=== PATIENT | female | born 1945 | race Caucasian/White ===

== ENCOUNTER 2024-01-13 12:46 | Emergency (ER) | payer MEDICARE, SELFPAY ==
--- NOTE | ~2024-01-13 | CT_ITS ---
EXAMINATION: CT ANGIOGRAM OF THE CHEST WITH AND WITHOUT CONTRAST (CT PULMONARY ANGIOGRAM FOR PE) CLINICAL INFORMATION: Shortness of breath. Pulmonary embolus. COMPARISON: Chest radiograph from 01/13/2024. TECHNIQUE: Prior to contrast administration, noncontrast localization images were obtained. Subsequently, multidetector volumetric imaging was performed from the thoracic inlet to below the diaphragms following the administration of 65 mL Omnipaque 350 intravenous contrast. No contrast reaction reported. Sagittal, coronal, and MIP oblique sagittal reformatted images were obtained on the CT workstation, uploaded to PACS, and reviewed. This CT examination was performed using dose optimization techniques as appropriate, variously including the following: *Automated exposure control. *Adjustment of mA and/or kV according to patient size (this includes techniques or standardized protocols for targeted exams where dose is matched to indication/reason for exam; i.e. extremities or head). *Use of iterative reconstruction technique. DLP: 431 mGy-cm FINDINGS: QUALITY OF STUDY/CONTRAST BOLUS: Satisfactory contrast bolus. Moderate respiratory degradation (especially in the lung bases). PULMONARY ARTERIES: No central pulmonary emboli. Evaluation of the segmental pulmonary arteries in the lung bases is limited by respiratory motion. Within this limitation, there is no overt segmental pulmonary emboli. THORACIC AORTA: The thoracic aorta is of normal contour and caliber with mild to moderate calcific atherosclerotic disease. No evidence of thoracic aortic aneurysm or dissection. LUNG: Mild bilateral dependent atelectasis. No focal consolidation, nodules, or masses. PLEURA: No pleural effusion or pneumothorax. MEDIASTINUM: Normal heart size. No pericardial effusion. No hilar or mediastinal lymphadenopathy. No evidence of septal bowing or right heart strain. Coronary artery calcifications: Present - mild to moderate. CHEST WALL/AXILLA: No axillary or internal mammary lymphadenopathy. OSSEOUS STRUCTURES: No acute or suspicious osseous abnormality. Advanced degenerative arthropathy of the shoulder joints. Moderate multilevel degenerative spondyloarthropathy of the thoracic spine. UPPER ABDOMEN: Small hiatal hernia. No additional demonstrated significant abnormalities of the visualized upper abdomen. No reflux of contrast into the hepatic veins to suggest elevated right heart pressures. CT/CT angio chest PE protocol IMPRESSION: 1. No central pulmonary emboli. Evaluation of the segmental pulmonary arteries in the lung bases is limited by respiratory motion. 2. No demonstrated acute pulmonary abnormalities. VTE: negative. Electronically signed by: Hubert Nails DO 01/13/2024 05:47 PM EDT
--- NOTE | ~2024-01-13 | XR_ITS ---
EXAMINATION: XR CHEST CLINICAL INFORMATION: Shortness of breath. COMPARISON: None available. TECHNIQUE: 2 views of the chest were obtained. FINDINGS: Low lung volumes. No focal consolidation. No pleural effusion. Cardiac silhouette appears prominent but this may be accentuated by hypoinflation. Anterior wedging of multiple mid to lower thoracic spine vertebral bodies. XR/XR chest 2V IMPRESSION: No acute abnormality. Electronically signed by: Nikita Joseph MD 01/13/2024 04:14 PM EDT
--- NOTE | 2024-01-13 13:02 | ECG_ITS ---
Test Reason : sob Blood Pressure : / mmHG Vent. Rate : 099 BPM Atrial Rate : 099 BPM P-R Int : 158 ms QRS Dur : 086 ms QT Int : 346 ms P-R-T Axes : 040 012 007 degrees QTc Int : 444 ms Normal sinus rhythm Inferior infarct , age undetermined Cannot rule out Anterior infarct , age undetermined Abnormal ECG No previous ECGs available Referred By: Lynn Mann Electronically Signed By:ARTEM MCCURDY MD
--- NOTE | 2024-01-13 13:02 | ED_ITS ---
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 Patient states that over the last 2 weeks she has had worsening shortness of breath and cough. Patient states that she was started on doxycycline but after 1 dose, she vomited, and stopped taking it entirely. Patient denies any dizziness, lightheadedness, abdominal pain, nausea, vomiting, fever, chills, blurry vision, double vision, loss of vision, chest pain, back pain, night sweats, pain with urination, increased urinary frequency, increased urinary urgency, blood in her urine or stool, syncope or a near syncopal episode, recent trauma or falls, bowel incontinence, bladder incontinence, or any other complaints at this time. Onset (ago): week(s) (2) Relieving factors: none Associated symptoms: cough and shortness of breath Treatments prior to arrival: other (Inhaler) Related Data Previous Rx's ?Medication ?Instructions ?Recorded azithromycin 500 mg tablet See Rx Instructions PO .COMPLEX #3 01/13/24 tabs Allergies Allergy/AdvReac Type Severity Reaction Status Date / Time doxycycline Allergy Unknown Verified 01/13/24 13:21 latex Allergy Unknown Verified 01/13/24 13:21 rosuvastatin Allergy Unknown Verified 01/13/24 13:21 Sulfa (Sulfonamide Allergy Unknown Verified 01/13/24 13:20 Antibiotics) Review of Systems 2 Constitutional: Constitutional: Denies chills, Denies fever(s) and Denies night sweats Eyes: Eyes: Reports no additional eye complaints, Denies blurry vision, Denies change in vision, Denies diplopia, Denies eye discharge, Denies loss of vision and Denies eye pain ENT: Denies dizziness Cardiovascular: Cardiovascular: Reports no additional cardiovascular complaints, Denies chest pain, Denies lightheadedness, Denies Loss of Consciousness, Denies palpitations and Reports dyspnea Respiratory: Respiratory: Reports no additional respiratory complaints, Reports cough, Reports dyspnea and Reports wheezing Gastrointestinal: Gastrointestinal: Reports no additional gastrointestinal complaints, Denies abdominal pain, Denies melena, Denies hematochezia, Denies change in bowel habits and Denies change in stool character Genitourinary: Genitourinary: Denies hematuria, Denies urinary frequency, Denies dysuria, Denies urinary incontinence, Denies urinary hesitancy and Denies urinary urgency Musculoskeletal: Musculoskeletal: Reports no additional musculoskeletal complaints, Denies numbness and Denies tingling Neurologic: Denies dizziness, Denies loss of vision, Denies numbness and Denies tingling Psychiatric: Psychiatric: Reports no additional psychiatric complaints Endocrine: Endocrine: Reports no additional endocrine complaints and Denies palpitations Hematologic/Lymphatic: Hematologic/Lymphatic: Reports no additional hematologic/lymphatic complaints Allergic/Immunologic: Allergic/Immunologic: Reports no additional allergic/immunologic complaints and Reports wheezing PMFSH Past Medical History Attestation statement: The following information was validated with the patient. Source: old records reviewed and nursing notes reviewed Social History Social History Alcohol intake: never Smoked in Last 30 Days: No Use of substances other than those prescribed or required for medical reasons: No Advance Directives: No Advance Directives Information Provided: No Physical Exam ED Vital Signs: Vital Signs - 24 hr 01/13/24 14:09 01/13/24 16:31 01/13/24 19:02 Temperature 98.1 F 98.1 F Pulse Rate 68 93 93 Respiratory Rate 22 H 20 18 Blood Pressure 107/48 L 107/48 L Pulse Oximetry 94 98 Oxygen Delivery Method Room Air Room Air BMI result Body Mass Index 44.8 Const General: cooperative, no acute distress, alert and awake Nutritional Appearance: well nourished Orientation/consciousness: patient oriented x3 Limitations: no limitations [facility] Head: Yes normal to inspection and Yes atraumatic Ears: hearing grossly normal bilaterally and external ears normal General nose exam: Normal external nose present, no nasal discharge noted and no epistaxis Face and sinus: Yes normal facial exam, No abrasion and No laceration Mouth: Normal oral and palatal mucosa present, no drooling and no muffled voice Eyes General: appearance normal, both eyes and all related structures Periorbital: periorbital findings normal Eyelids: Yes eyelids normal Conjunctivae: conjunctivae normal Pupils: Equal, round and reactive pupils present EOM: EOMs intact bilaterally Neck Neck: Yes normal visual inspection, Yes full ROM and Yes no lymphadenopathy Chest Chest palpation & inspection: normal inspection of the chest Resp Effort & Inspection: normal respiratory effort, able to speak in complete sentences, Actively coughing Quality: wet and symmetric chest movement Auscultation: no crackles, no rales, no rhonchi and wheezes lower bilaterally GI Inspection: Yes normal to inspection Neuro General: patient oriented x3 and moves all extremities Cranial nerves: Yes Equal, round and reactive pupils present Cognition (Neuro): normal cognition Extrem General: Yes normal to inspection, Yes full ROM and Yes capillary refill normal Psych Appearance: grossly normal Mental Status: mental status grossly normal Affect: normal affect Attitude: cooperative Thought process: Normal thought process present Thought content: Normal thought content present Insight: Good insight present (Psych) Medications Administered Discontinued Medications Generic Name Dose Route Start Last Admin Trade Name Freq PRN Reason Stop Dose Admin Albuterol Sulfate 5 mg/ 0 mg 01/13/24 14:04 01/13/24 14:06 Albuterol/Ipratropium 3 ml INHALE 01/13/24 14:05 1 each ONCE ONE Administration Iohexol 100 ml 01/13/24 15:59 01/13/24 15:59 Iohexol 350 Mg/Ml 100 Ml Infus..Btl IV 01/13/24 16:00 65 ml ONCE ONE Administration Methylprednisolone Sodium Succinate 60 mg 01/13/24 14:06 01/13/24 14:07 Methylprednisolone Sod Succ 125 Mg/2 Ml Vial IVPUSH 01/13/24 14:07 60 mg ONCE ONE Administration Medical Decision Making Medical Decision Making [facility] Narrative: Patient is a 78 year old assigned female at with a history of HTN, bipolar disorder, CKD stage 3, anxiety, hypothyroidism, 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 Patient's physical exam was as noted in the physical exam portion of this note. Patient's blood work was unremarkable. Patient's urine showed no acute process. Patient's EKG was unremarkable. Patient's chest x-ray and chest CT showed no acute process. I explained my physical exam findings as well as all test results to the patient. I answered all questions asked by the patient. Patient received a breathing treatment and IV solu-medrol which she stated helped her symptoms significantly. I stressed the importance of the patient taking her medication as directed (either prescribed or as the over the counter packaging recommends). I stressed the importance of the patient following up with her primary care provider. I stressed the importance of the patient returning to the emergency department immediately if her symptoms were to worsen or if she were to develop any dizziness, shortness of breath, difficulty breathing, chest pain, blurry vision, loss of vision, nausea, vomiting, abdominal pain, fever, chills, back pain, or any other complaints. Patient verbalized agreement and understanding with this treatment plan and discharge. Differential Diagnosis Differential Diagnoses: The differential diagnosis associated with the presentation includes COPD exacerbation Asthma exacerbation Cough PNA Admission/Observation Consideration of admission/observation: Escalation of care including admission/observation considered Patient would have been admitted to the hospital had her work up had any findings where hospital admission was appropriate and her clinical presentation warranted hospital admission. Lab Data [facility] Lab Attestation statement: I reviewed the patient's lab results. My interpretation of these results are in the [facility] Rationale portion of this note. 01/13/24 13:43 01/13/24 13:43 Labs: Lab Results 01/13/24 01/13/24 01/13/24 Range/Units 13:43 13:44 13:49 WBC 9.3 (4.8-10.8) X10*3/uL RBC 3.93 L (4.20-5.50) X10*6/uL Hgb 11.1 L (12.0-16.0) g/dl Hct 34.0 L (37.0-47.0) % MCV 86.5 (80.0-98.0) fL MCH 28.2 (27.0-33.0) pg MCHC 32.6 (31.0-35.0) g/dl RDW 14.2 (11.0-16.0) % Plt Count 240 (160-400) X10*3/uL MPV 9.7 (9.4-12.3) fL Immature Gran % (Auto) 0.4 (0.0-0.4) % Neut % (Auto) 58.2 (45-73) % Lymph % (Auto) 20.9 (20-40) % [place] % (Auto) 10.9 (2-11) % Eos % (Auto) 8.5 H (0-4) % Baso % (Auto) 1.1 (0-2) % Lymph # (Auto) 1.9 (1.2-4.9) X10*3/uL [place] # (Auto) 1.0 (0.1-1.2) X10*3/uL Eos # (Auto) 0.8 H (0.0-0.4) X10*3/uL Baso # (Auto) 0.1 (0.0-0.2) X10*3/uL Abs Immat Gran (auto) 0.04 H (0.00-0.03) X10*3/uL Absolute Neuts (auto) 5.4 (2.0-8.3) x10*3/uL Absolute Nucleated RBC 0.000 (0.0-0.012) X10*3/uL Nucleated RBC % (auto) 0.0 (0.0-0.2) /100WBC PT 33.3 H (10.9-12.4) SEC INR 2.9 H (0.9-1.1) APTT 41.0 H (26.0-36.8) SEC VBG pH 7.46 H (7.32-7.43) VBG pCO2 43 mmHg VBG pO2 57 mmHg VBG HCO3 31 H (22-26) mmol/L VBG O2 Saturation 87.0 % VBG Base Excess 6.9 mmol/L Sodium 138 (135-145) mmol/L Potassium 4.4 (3.3-5.1) mmol/L Chloride 103 (96-108) mmol/L Carbon Dioxide 28 (22-29) mmol/L Anion Gap 11 L (12-20) BUN 12 (9-16) mg/dL Creatinine 0.88 (0.5-1.4) mg/dL Estim Creat Clear Calc 67.7 Estimated GFR > 60 Random Glucose 103 (60-115) mg/dL Calcium 9.2 (8.4-10.2) mg/dL Magnesium 2.0 (1.6-2.6) mg/dL Total Bilirubin 0.6 (0.0-1.0) mg/dL AST 18 (5-31) U/L ALT 13 (0-31) U/L Alkaline Phosphatase 74 (39-117) U/L Troponin I High Sens 11.0 (<3.5-17.0) ng/L Total Protein 6.2 L (6.5-8.0) g/dL Albumin 3.5 (3.5-5.0) g/dL Urine Color Urine Appearance Urine pH (5.0-9.0) Ur Specific [place] (1.005-1.025) Urine Protein (Neg-Trace) mg/dL Urine Glucose (UA) (Negative) mg/dL Urine Ketones (Negative) mg/dL Urine Blood (Negative) Urine Nitrite (Negative) Ur Leukocyte Esterase (Negative) Influenza Type A (PCR) NEGATIVE (Negative) Influenza Type B (PCR) NEGATIVE (Negative) RSV RNA Qual (PCR) NEGATIVE (Negative) SARS-CoV-2 RNA (RT-PCR) NEGATIVE (Negative) 01/13/24 01/13/24 Range/Units 16:17 16:26 WBC (4.8-10.8) X10*3/uL RBC (4.20-5.50) X10*6/uL Hgb (12.0-16.0) g/dl Hct (37.0-47.0) % MCV (80.0-98.0) fL MCH (27.0-33.0) pg MCHC (31.0-35.0) g/dl RDW (11.0-16.0) % Plt Count (160-400) X10*3/uL MPV (9.4-12.3) fL Immature Gran % (Auto) (0.0-0.4) % Neut % (Auto) (45-73) % Lymph % (Auto) (20-40) % [place] % (Auto) (2-11) % Eos % (Auto) (0-4) % Baso % (Auto) (0-2) % Lymph # (Auto) (1.2-4.9) X10*3/uL [place] # (Auto) (0.1-1.2) X10*3/uL Eos # (Auto) (0.0-0.4) X10*3/uL Baso # (Auto) (0.0-0.2) X10*3/uL Abs Immat Gran (auto) (0.00-0.03) X10*3/uL Absolute Neuts (auto) (2.0-8.3) x10*3/uL Absolute Nucleated RBC (0.0-0.012) X10*3/uL Nucleated RBC % (auto) (0.0-0.2) /100WBC PT (10.9-12.4) SEC INR (0.9-1.1) APTT (26.0-36.8) SEC VBG pH (7.32-7.43) VBG pCO2 mmHg VBG pO2 mmHg VBG HCO3 (22-26) mmol/L VBG O2 Saturation % VBG Base Excess mmol/L Sodium (135-145) mmol/L Potassium (3.3-5.1) mmol/L Chloride (96-108) mmol/L Carbon Dioxide (22-29) mmol/L Anion Gap (12-20) BUN (9-16) mg/dL Creatinine (0.5-1.4) mg/dL Estim Creat Clear Calc Estimated GFR Random Glucose (60-115) mg/dL Calcium (8.4-10.2) mg/dL Magnesium (1.6-2.6) mg/dL Total Bilirubin (0.0-1.0) mg/dL AST (5-31) U/L ALT (0-31) U/L Alkaline Phosphatase (39-117) U/L Troponin I High Sens 11.6 (<3.5-17.0) ng/L Total Protein (6.5-8.0) g/dL Albumin (3.5-5.0) g/dL Urine Color Yellow Urine Appearance Clear Urine pH 7.5 (5.0-9.0) Ur Specific [place] 1.020 (1.005-1.025) Urine Protein Negative (Neg-Trace) mg/dL Urine Glucose (UA) Negative (Negative) mg/dL Urine Ketones Negative (Negative) mg/dL Urine Blood Negative (Negative) Urine Nitrite Negative (Negative) Ur Leukocyte Esterase Negative (Negative) Influenza Type A (PCR) (Negative) Influenza Type B (PCR) (Negative) RSV RNA Qual (PCR) (Negative) SARS-CoV-2 RNA (RT-PCR) (Negative) Independent Interpretation I performed an independent interpretation of an: EKG, Plain X-Ray and CT Scan Interpretation: My interpretation is in agreement with the radiologist's impression of these imaging studies. L EXAMINATION: XR CHEST CLINICAL INFORMATION: Shortness of breath. COMPARISON: None available. TECHNIQUE: 2 views of the chest were obtained. FINDINGS: Low lung volumes. No focal consolidation. No pleural effusion. Cardiac silhouette appears prominent but this may be accentuated by hypoinflation. Anterior wedging of multiple mid to lower thoracic spine vertebral bodies. XR/XR chest 2V IMPRESSION: No acute abnormality. Electronically signed by: Nikita Joseph MD 01/13/2024 04:14 PM EDT RP Dictated By: Argenis Joseph MD Signed By: Electronically signed by Argenis Joseph MD 01/13/24 1614 EXAMINATION: CT ANGIOGRAM OF THE CHEST WITH AND WITHOUT CONTRAST (CT PULMONARY ANGIOGRAM FOR PE) CLINICAL INFORMATION: Shortness of breath. Pulmonary embolus. COMPARISON: Chest radiograph from 01/13/2024. TECHNIQUE: Prior to contrast administration, noncontrast localization images were obtained. Subsequently, multidetector volumetric imaging was performed from the thoracic inlet to below the diaphragms following the administration of 65 mL Omnipaque 350 intravenous contrast. No contrast reaction reported. Sagittal, coronal, and MIP oblique sagittal reformatted images were obtained on the CT workstation, uploaded to PACS, and reviewed. This CT examination was performed using dose optimization techniques as appropriate, variously including the following: *Automated exposure control. *Adjustment of mA and/or kV according to patient size (this includes techniques or standardized protocols for targeted exams where dose is matched to indication/reason for exam; i.e. extremities or head). *Use of iterative reconstruction technique. DLP: 431 mGy-cm FINDINGS: QUALITY OF STUDY/CONTRAST BOLUS: Satisfactory contrast bolus. Moderate respiratory degradation (especially in the lung bases). PULMONARY ARTERIES: No central pulmonary emboli. Evaluation of the segmental pulmonary arteries in the lung bases is limited by respiratory motion. Within this limitation, there is no overt segmental pulmonary emboli. THORACIC AORTA: The thoracic aorta is of normal contour and caliber with mild to moderate calcific atherosclerotic disease. No evidence of thoracic aortic aneurysm or dissection. LUNG: Mild bilateral dependent atelectasis. No focal consolidation, nodules, or masses. PLEURA: No pleural effusion or pneumothorax. MEDIASTINUM: Normal heart size. No pericardial effusion. No hilar or mediastinal lymphadenopathy. No evidence of septal bowing or right heart strain. Coronary artery calcifications: Present - mild to moderate. CHEST WALL/AXILLA: No axillary or internal mammary lymphadenopathy. OSSEOUS STRUCTURES: No acute or suspicious osseous abnormality. Advanced degenerative arthropathy of the shoulder joints. Moderate multilevel degenerative spondyloarthropathy of the thoracic spine. UPPER ABDOMEN: Small hiatal hernia. No additional demonstrated significant abnormalities of the visualized upper abdomen. No reflux of contrast into the hepatic veins to suggest elevated right heart pressures. CT/CT angio chest PE protocol IMPRESSION: 1. No central pulmonary emboli. Evaluation of the segmental pulmonary arteries in the lung bases is limited by respiratory motion. 2. No demonstrated acute pulmonary abnormalities. VTE: negative. Electronically signed by: Hubert Nails DO 01/13/2024 05:47 PM EDT Dictated By: Chaim Nails DO Signed By: Electronically signed by Chaim Nails DO 01/13/24 1747 Vent. Rate: 099 BPM Atrial Rate: 099 BPM P-R Int: 158 ms QRS Dur: 086 ms QT Int: 346 ms P-R-T Axes: 040 012 007 degrees QTc Int: 444 ms Normal sinus rhythm Inferior infarct, age undetermined Abnormal ECG No previous ECGs available Referred By: Lynn Mann Electronically Signed By:MAGNO MCCURDY MD Dictated By: Magno Mccurdy MD Signed By: Electronically signed by Magno Mccurdy MD 01/13/24 3831 Radiology Impression Discussion of test interpretation with radiology: I have reviewed the radiologist's reading. Independent Historian Clinical information obtained from an independent historian. History obtained from or confirmed by: EMS (EMS provided additional history and confirmed the history provided by the patient.) Prescription Management I considered prescription management with: Antibiotic (patient prescribed an antibiotic) Critical Care Time Critical Care Time Critical Care Time: Yes Total Critical Care Time: 41 Attestation: I spent 41 minutes of Critical Care Time with this patient. This does not include time spent on separately reported billable procedures. Discharge Plan Discharge Clinical Impression: Acute exacerbation of chronic obstructive airways disease Patient Disposition: Home, Self-Care Instructions: COPD (Chronic Obstructive Pulmonary Disease) (DC) Additional Instructions: Please finish your course of doxycycline as well as the medication you have been prescribed today. Follow up with your primary care provider. Return to the emergency department immediately if your symptoms worsen or if you develop any dizziness, shortness of breath, difficulty breathing, chest pain, blurry vision, loss of vision, nausea, vomiting, abdominal pain, fever, chills, back pain, or any other complaints. Prescriptions: New azithromycin 500 mg tablet See Rx Instructions .ROUTE .COMPLEX Qty: 3 0RF Rx Instructions: For 250 mg dose pack: take 500 mg today (day 1), then 250 mg for 4 days (days 2-5) Referrals: [facility] [place] [facility] [place] Group] (Call to establish and follow up with a primary care provider. If you already have a primary care provider, please follow up with them.) [facility] [place] [facility] [Provider Group] (Call to establish and follow up with a primary care provider. If you already have a primary care provider, please follow up with them.) [facility] [place] [facility] [Provider Group] (Call to establish and follow up with a primary care provider. If you already have a primary care provider, please follow up with them.) Interventions: ED Discharge Assessment Last Done: 01/13/24 19:02 Discharge Date/Time: 01/13/24 19:03 Print Language: Vincentian
[2024-01-13 13:09] VITALS: BP 130/80; PULSE 88; O2SAT 96; BMI 44.8
[2024-01-13 13:52] LABS: MANUAL DIFF FLAG NO
[2024-01-13 13:53] LABS: Venous Blood Gas Refer to POC result
[2024-01-13 13:53] LABS: VBG Base Excess 6.9 mmol/L; VBG HCO3 31 mmol/L (22-26); VBG pCO2 43 mmHg; VBG pH 7.46 (7.32-7.43); VBG pO2 57 mmHg
[2024-01-13 14:01] LABS: Basophils Absolute Auto 0.1 X10*3/uL (0.0-0.2); Basophils Percent Auto 1.1 % (0-2); Eosinophils Absolute Auto 0.8 X10*3/uL (0.0-0.4); Eosinophils Percent Auto 8.5 % (0-4); Hemoglobin 11.1 g/dl (12.0-16.0); Imm Gran Abs Auto 0.04 X10*3/uL (0.00-0.03); Imm Gran Pct Auto 0.4 % (0.0-0.4); Lymphocytes Absolute Auto 1.9 X10*3/uL (1.2-4.9); Lymphocytes Percent Auto 20.9 % (20-40); Mean Corpuscular HGB Conc 32.6 g/dl (31.0-35.0); Mean Corpuscular Hemoglobin 28.2 pg (27.0-33.0); Mean Corpuscular Volume 86.5 fL (80.0-98.0); Mean Platelet Volume 9.7 fL (9.4-12.3); Monocytes Percent Auto 10.9 % (2-11); Neutrophils Absolute Auto 5.4 x10*3/uL (2.0-8.3); Neutrophils Percent Auto 58.2 % (45-73); Platelet Count 240 X10*3/uL (160-400); Red Blood Count 3.93 X10*6/uL (4.20-5.50); Red Cell Distribution Width 14.2 % (11.0-16.0); White Blood Count 9.3 X10*3/uL (4.8-10.8)
[2024-01-13 14:05] LABS: INTERNATIONAL NORM RATIO 2.9 (0.9-1.1); Prothrombin Time 33.3 SEC (10.9-12.4)
[2024-01-13] MEDS: Albuterol Sulfate 5 MG, Albuterol/Iprat 2.5/0.5MG 3 ML 3 ML INHALE (14:06)
[2024-01-13 14:07] LABS: Alanine Aminotransferase 13 U/L (0-31); Albumin Level 3.5 g/dL (3.5-5.0); Alkaline Phosphatase 74 U/L (39-117); Anion Gap 11 (12-20); Aspartate Amino Transferase 18 U/L (5-31); Bilirubin Total 0.6 mg/dL (0.0-1.0); Blood Urea Nitrogen 12 mg/dL (9-16); Calcium 9.2 mg/dL (8.4-10.2); Carbon Dioxide 28 mmol/L (22-29); Chloride 103 mmol/L (96-108); Creatinine Clr Calc Pharmacy 67.7; Estimated Glomerular Filt Rate > 60; Glucose Random 103 mg/dL (60-115); Potassium 4.4 mmol/L (3.3-5.1); Sodium 138 mmol/L (135-145); Total Protein 6.2 g/dL (6.5-8.0)
[2024-01-13] MEDS: methylPREDNISolone Sod Succ 125 MG/2 ML VIAL 60 MG IVPUSH (14:07)
[2024-01-13 14:09] VITALS: PULSE 68; RESP 22; O2SAT 99
[2024-01-13 14:39] LABS: Influenza A PCR NEGATIVE (Negative); Influenza B PCR NEGATIVE (Negative); Resp Syncy Virus RNA Qual PCR NEGATIVE (Negative); SARS COV2 PCR INHOUSE NEGATIVE (Negative)
--- NOTE | 2024-01-13 15:13 | PC.NURSE ---
From home with complaint of sob x 2 weeks that is not improving. Reports sob with exertion , not feeling well for last few weeks , occasional non -productive cough, 20g in placed in right forearm
[2024-01-13] MEDS: iohexoL 350 MG/ML 100 ML INFUS..BTL IV (15:59)
[2024-01-13 16:31] VITALS: BP 107/48; PULSE 93; RESP 20; TEMP 36.7; O2SAT 94
[2024-01-13 16:36] LABS: Appearance Urine Clear; Color Urine Yellow; Glucose Urine UA Negative (Negative); Leukocyte Esterase Urine Negative (Negative); Nitrite Urine Negative (Negative); PH 7.5 (5.0-9.0); Urine Blood Negative (Negative); Urine Ketones Negative (Negative); Urine Protein Negative (Neg-Trace)
[2024-01-13 16:43] LABS: Troponin-I High Sensitivity 11.6 ng/L (<3.5-17.0)
[2024-01-13 19:02] VITALS: BP 107/48; PULSE 93; RESP 18; TEMP 36.7; O2SAT 98
== END 2024-01-13 19:03 | disposition home or self-care (01) ==
PROVIDERS: Physician Assistant Medical; Emergency Provider Emergency Medicine
DX: J44.1 Chronic obstructive pulmonary disease with (acute) exacerbation (principal); R05.9 Cough, unspecified; R06.02 Shortness of breath; Z03.818 Encounter for observation for suspected exposure to other biological agents ruled out
CPT/HCPCS: 0241U; 36415; 71046; 71275; 80053; 81003; 82803; 83735; 84484; 85025; 85610; 85730; 93005; 94640; 96374; 99284; 99285; J2919; Q9967

== ENCOUNTER → 2024-01-13 13:02 | Outpatient (BNV) | payer MEDICARE, SELFPAY | PROVIDERS: Emergency Provider Emergency Medicine; Visit Provider Internal Medicine Cardiovascular Disease | DX: R94.31 Abnormal electrocardiogram [ECG] [EKG] (principal) | CPT/HCPCS: 93010 ==

== ENCOUNTER 2024-03-19 10:22 | Emergency (ER) | payer MEDICARE, SELFPAY ==
--- NOTE | ~2024-03-19 | US_ITS ---
EXAMINATION: US TRIPLEX LOWER EXTREMITY, BILATERAL CLINICAL INFORMATION: Bilateral leg pain and edema COMPARISON: None available. TECHNIQUE: Color-flow triplex imaging with spectral analysis and compression Doppler were performed on the bilateral lower extremities. FINDINGS: Respiratory variation, normal compression and augmented flow are noted throughout the bilateral lower extremities. The visualized common femoral vein, superficial femoral vein, profunda femoral vein, popliteal vein and midcalf peroneal and posterior tibial venous segments show no evidence of deep venous thrombosis bilaterally. There is no Pickard's cyst. US/US venous duplex LE BI IMPRESSION: No evidence of deep venous thrombosis involving the bilateral lower extremities. This study was presented today to March 19, 2024 for interpretation. Stat results provided at this time as requested by referring provider. Electronically signed by: Rhiannon Harry MD 03/19/2024 01:18 PM [facility]
--- NOTE | 2024-03-19 10:38 | ED_ITS ---
HPI - General Adult General Chief complaint: Extremity Injury, Lower Stated complaint: LLE indented/ red. 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 Patient states that she is concerned she has a blood clot in the left lower leg because she is having swelling and indenting of the left lower leg. Patient states that both legs have been swelling but left more than right. Patient denies any dizziness, lightheadedness, abdominal pain, nausea, vomiting, fever, chills, blurry vision, double vision, loss of vision, chest pain, difficulty breathing, shortness of breath, back pain, night sweats, pain with urination, increased urinary frequency, increased urinary urgency, blood in her urine or stool, syncope or a near syncopal episode, recent trauma or falls, bowel incontinence, bladder incontinence, or any other complaints at this time. Relieving factors: none Exacerbating factors: none Associated symptoms: denies other symptoms Treatments prior to arrival: none Related Data Previous Rx's ?Medication ?Instructions ?Recorded azithromycin 500 mg tablet See Rx Instructions PO .COMPLEX #3 01/13/24 tabs Allergies Allergy/AdvReac Type Severity Reaction Status Date / Time doxycycline Allergy Unknown Verified 03/19/24 10:57 latex Allergy Unknown Verified 03/19/24 10:57 rosuvastatin Allergy Unknown Verified 03/19/24 10:57 Sulfa (Sulfonamide Allergy Unknown Verified 03/19/24 10:57 Antibiotics) Review of Systems 2 Constitutional: Constitutional: Reports no additional constitutional complaints, Denies chills, Denies fever(s) and Denies night sweats Eyes: Eyes: Reports no additional eye complaints, Denies blurry vision, Denies change in vision, Denies diplopia, Denies eye discharge, Denies loss of vision and Denies eye pain ENT: Denies dizziness Cardiovascular: Cardiovascular: Reports no additional cardiovascular complaints, Denies chest pain, Denies lightheadedness, Denies Loss of Consciousness and Denies dyspnea Respiratory: Respiratory: Reports no additional respiratory complaints and Denies dyspnea Gastrointestinal: Gastrointestinal: Reports no additional gastrointestinal complaints, Denies abdominal pain, Denies melena, Denies hematochezia, Denies change in bowel habits and Denies change in stool character Genitourinary: Genitourinary: Denies hematuria, Denies urinary frequency, Denies dysuria, Denies urinary incontinence, Denies urinary hesitancy and Denies urinary urgency Musculoskeletal: Musculoskeletal: Reports no additional musculoskeletal complaints, Denies numbness and Denies tingling Comments: left lower leg swelling Neurologic: Denies dizziness, Denies loss of vision, Denies numbness and Denies tingling Psychiatric: Psychiatric: Reports no additional psychiatric complaints Endocrine: Endocrine: Reports no additional endocrine complaints Hematologic/Lymphatic: Hematologic/Lymphatic: Reports no additional hematologic/lymphatic complaints Allergic/Immunologic: Allergic/Immunologic: Reports no additional allergic/immunologic complaints PMFSH Past Medical History Attestation statement: The following information was validated with the patient. Source: old records reviewed and nursing notes reviewed Social History Social History Alcohol intake: never Advance Directives: No Advance Directives Information Provided: Yes Physical Exam ED Vital Signs: Vital Signs - 24 hr 03/19/24 10:54 03/19/24 14:17 Temperature 98.5 F Pulse Rate 57 53 Respiratory Rate 18 13 Blood Pressure 141/31 H 156/44 H Pulse Oximetry 99 96 Oxygen Delivery Method Room Air Room Air BMI result Body Mass Index 41.9 Const General: cooperative, no acute distress, alert and awake Nutritional Appearance: well nourished Orientation/consciousness: patient oriented x3 Limitations: no limitations [facility] Head: Yes normal to inspection and Yes atraumatic Ears: hearing grossly normal bilaterally and external ears normal General nose exam: Normal external nose present, no nasal discharge noted and no epistaxis Face and sinus: Yes normal facial exam, No abrasion and No laceration Mouth: Normal oral and palatal mucosa present, no drooling and no muffled voice Eyes General: appearance normal, both eyes and all related structures Periorbital: periorbital findings normal Eyelids: Yes eyelids normal Conjunctivae: conjunctivae normal Pupils: Equal, round and reactive pupils present EOM: EOMs intact bilaterally Neck Neck: Yes normal visual inspection, Yes full ROM and Yes no lymphadenopathy Chest Chest palpation & inspection: normal inspection of the chest Resp Effort & Inspection: normal respiratory effort and able to speak in complete sentences GI Inspection: Yes normal to inspection Neuro General: patient oriented x3 and moves all extremities Cranial nerves: Yes Equal, round and reactive pupils present Cognition (Neuro): normal cognition Extrem Other: 2+ bilateral lower leg edema bilateral venous stasis dermatitis General: Yes full ROM and Yes capillary refill normal Psych Appearance: grossly normal Mental Status: mental status grossly normal Affect: normal affect Attitude: cooperative Thought process: Normal thought process present Thought content: Normal thought content present Insight: Good insight present (Psych) Medical Decision Making Medical Decision Making MDM Narrative: Patient is a 78 year old assigned female at with a history of HTN, bipolar disorder, CKD stage 3, anxiety, hypothyroidism, 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 Patient's physical exam was as noted. Patient's blood work was unremarkable. Patient's bilateral lower extremity US showed no acute process / no DVT. I explained my physical exam findings as well as all test results to the patient. I answered all questions asked by the patient. I stressed the importance of the patient taking her medication as directed (either prescribed or as the over the counter packaging recommends). I stressed the importance of the patient following up with her primary care provider. I stressed the importance of the patient returning to the emergency department immediately if her symptoms were to worsen or if she were to develop any dizziness, shortness of breath, difficulty breathing, chest pain, blurry vision, loss of vision, nausea, vomiting, abdominal pain, fever, chills, back pain, or any other complaints. Patient verbalized agreement and understanding with this treatment plan and discharge. Differential Diagnosis Differential Diagnoses: The differential diagnosis associated with the presentation includes Bilateral lower leg swelling Left lower leg swelling DVT Admission/Observation Consideration of admission/observation: Escalation of care including admission/observation considered Patient would have been admitted to the hospital had her work up had any findings where hospital admission was appropriate and her clinical presentation warranted hospital admission. Lab Data [facility] Lab Attestation statement: I reviewed the patient's lab results. My interpretation of these results are in the [facility] Rationale portion of this note. 03/19/24 11:22 03/19/24 11:22 Labs: Lab Results 03/19/24 Range/Units 11:22 WBC 6.6 (4.8-10.8) X10*3/uL RBC 3.96 L (4.20-5.50) X10*6/uL Hgb 11.2 L (12.0-16.0) g/dl Hct 35.8 L (37.0-47.0) % MCV 90.4 (80.0-98.0) fL MCH 28.3 (27.0-33.0) pg MCHC 31.3 (31.0-35.0) g/dl RDW 14.2 (11.0-16.0) % Plt Count 210 (160-400) X10*3/uL MPV 9.5 (9.4-12.3) fL Immature Gran % (Auto) 0.3 (0.0-0.4) % Neut % (Auto) 57.3 (45-73) % Lymph % (Auto) 25.3 (20-40) % [place] % (Auto) 9.4 (2-11) % Eos % (Auto) 6.3 H (0-4) % Baso % (Auto) 1.4 (0-2) % Lymph # (Auto) 1.7 (1.2-4.9) X10*3/uL [place] # (Auto) 0.6 (0.1-1.2) X10*3/uL Eos # (Auto) 0.4 (0.0-0.4) X10*3/uL Baso # (Auto) 0.1 (0.0-0.2) X10*3/uL Abs Immat Gran (auto) 0.02 (0.00-0.03) X10*3/uL Absolute Neuts (auto) 3.8 (2.0-8.3) x10*3/uL Absolute Nucleated RBC 0.000 (0.0-0.012) X10*3/uL Nucleated RBC % (auto) 0.0 (0.0-0.2) /100WBC PT 35.2 H (10.9-12.4) SEC INR 3.0 H (0.9-1.1) APTT 44.1 H (26.0-36.8) SEC Sodium 141 (135-145) mmol/L Potassium 4.5 (3.3-5.1) mmol/L Chloride 106 (96-108) mmol/L Carbon Dioxide 26 (22-29) mmol/L Anion Gap 14 (12-20) BUN 14 (9-16) mg/dL Creatinine 1.00 (0.5-1.4) mg/dL Estim Creat Clear Calc 61.5 Estimated GFR 54 Random Glucose 107 (60-115) mg/dL Calcium 9.0 (8.4-10.2) mg/dL Magnesium 1.9 (1.6-2.6) mg/dL Total Bilirubin 0.5 (0.0-1.0) mg/dL AST 22 (5-31) U/L ALT 10 (0-31) U/L Alkaline Phosphatase 73 (39-117) U/L B-Natriuretic Peptide 102 H (<100) pg/mL Total Protein 6.3 L (6.5-8.0) g/dL Albumin 4.0 (3.5-5.0) g/dL Independent Interpretation I performed an independent interpretation of an: Ultrasound Interpretation: My interpretation is in agreement with the radiologist's impression of this imaging study. L EXAMINATION: US TRIPLEX LOWER EXTREMITY, BILATERAL CLINICAL INFORMATION: Bilateral leg pain and edema COMPARISON: None available. TECHNIQUE: Color-flow triplex imaging with spectral analysis and compression Doppler were performed on the bilateral lower extremities. FINDINGS: Respiratory variation, normal compression and augmented flow are noted throughout the bilateral lower extremities. The visualized common femoral vein, superficial femoral vein, profunda femoral vein, popliteal vein and midcalf peroneal and posterior tibial venous segments show no evidence of deep venous thrombosis bilaterally. There is no Pickard's cyst. US/US venous duplex LE BI IMPRESSION: No evidence of deep venous thrombosis involving the bilateral lower extremities. This study was presented today to March 19, 2024 for interpretation. Stat results provided at this time as requested by referring provider. Electronically signed by: Rhiannon Harry MD 03/19/2024 01:18 PM [facility] Dictated By: Rhiannon aHrry MD Signed By: Electronically signed by Rhiannon Harry MD 03/19/24 [id number] Radiology Impression Discussion of test interpretation with radiology: I have reviewed the radiologist's reading. Independent Historian Clinical information obtained from an independent historian. History obtained from or confirmed by: EMS (EMS provided additional history and confirmed the history provided by the patient.) Discharge Plan Discharge Clinical Impression: Swelling of extremity Patient Disposition: Home, Self-Care Instructions: Edema (ED) Additional Instructions: Your ultrasound showed no evidence of a blood clot. Your legs should be elevated whenever you are stationary. Follow up with your primary care provider. Return to the emergency department immediately if your symptoms worsen or if you develop any dizziness, shortness of breath, difficulty breathing, chest pain, blurry vision, loss of vision, nausea, vomiting, abdominal pain, fever, chills, back pain, or any other complaints. Prescriptions: No Action azithromycin 500 mg tablet See Rx Instructions .ROUTE .COMPLEX Qty: 3 0RF Rx Instructions: For 250 mg dose pack: take 500 mg today (day 1), then 250 mg for 4 days (days 2-5) Referrals: [facility] Family Medicine [Provider Group] (Call to establish and follow up with a primary care provider. If you already have a primary care provider, please follow up with them.) [facility] [Provider Group] (Call to establish and follow up with a primary care provider. If you already have a primary care provider, please follow up with them.) [facility] Primary [facility] [Provider Group] (Call to establish and follow up with a primary care provider. If you already have a primary care provider, please follow up with them.) Print Language: [place]
[2024-03-19 10:54] VITALS: BP 122/56; BP 141/31; PULSE 57; PULSE 86; RESP 18; TEMP 36.9; O2SAT 100; O2SAT 99; BMI 41.9
[2024-03-19 11:27] LABS: MANUAL DIFF FLAG NO
[2024-03-19 11:28] LABS: Basophils Absolute Auto 0.1 X10*3/uL (0.0-0.2); Basophils Percent Auto 1.4 % (0-2); Eosinophils Absolute Auto 0.4 X10*3/uL (0.0-0.4); Eosinophils Percent Auto 6.3 % (0-4); Hematocrit 35.8 % (37.0-47.0); Hemoglobin 11.2 g/dl (12.0-16.0); Imm Gran Abs Auto 0.02 X10*3/uL (0.00-0.03); Imm Gran Pct Auto 0.3 % (0.0-0.4); Lymphocytes Absolute Auto 1.7 X10*3/uL (1.2-4.9); Lymphocytes Percent Auto 25.3 % (20-40); Mean Corpuscular HGB Conc 31.3 g/dl (31.0-35.0); Mean Corpuscular Hemoglobin 28.3 pg (27.0-33.0); Mean Corpuscular Volume 90.4 fL (80.0-98.0); Mean Platelet Volume 9.5 fL (9.4-12.3); Monocytes Absolute Auto 0.6 X10*3/uL (0.1-1.2); Monocytes Percent Auto 9.4 % (2-11); Neutrophils Absolute Auto 3.8 x10*3/uL (2.0-8.3); Neutrophils Percent Auto 57.3 % (45-73); Platelet Count 210 X10*3/uL (160-400); Red Blood Count 3.96 X10*6/uL (4.20-5.50); Red Cell Distribution Width 14.2 % (11.0-16.0); White Blood Count 6.6 X10*3/uL (4.8-10.8)
[2024-03-19 11:34] LABS: Prothrombin Time 35.2 SEC (10.9-12.4)
[2024-03-19 11:36] LABS: Partial Thromboplastin Time 44.1 SEC (26.0-36.8)
[2024-03-19 11:48] LABS: B Type Natriuretic Peptide 102 pg/mL (<100)
[2024-03-19 11:52] LABS: Anion Gap 14 (12-20); Aspartate Amino Transferase 22 U/L (5-31); Bilirubin Total 0.5 mg/dL (0.0-1.0); Blood Urea Nitrogen 14 mg/dL (9-16); Carbon Dioxide 26 mmol/L (22-29); Chloride 106 mmol/L (96-108); Creatinine Clr Calc Pharmacy 61.5; Estimated Glomerular Filt Rate 54; Glucose Random 107 mg/dL (60-115); Magnesium 1.9 mg/dL (1.6-2.6); Potassium 4.5 mmol/L (3.3-5.1); Sodium 141 mmol/L (135-145); Total Protein 6.3 g/dL (6.5-8.0)
[2024-03-19 12:23] LABS: Alanine Aminotransferase 10 U/L (0-31); Alkaline Phosphatase 73 U/L (39-117)
[2024-03-19 14:17] VITALS: BP 156/44; PULSE 53; RESP 13; O2SAT 96
[2024-03-19 16:06] VITALS: BP 156/44; PULSE 53; RESP 13; TEMP 36.8; O2SAT 96
== END 2024-03-19 16:08 | disposition home or self-care (01) ==
PROVIDERS: Physician Assistant Medical; Emergency Provider Emergency Medicine
DX: R60.0 Localized edema (principal); I12.9 Hypertensive chronic kidney disease with stage 1 through stage 4 chronic kidney disease, or unspecified chronic kidney disease; N18.30 Chronic kidney disease, stage 3 unspecified; R06.02 Shortness of breath; Z79.899 Other long term (current) drug therapy
CPT/HCPCS: 36415; 80053; 83735; 83880; 85025; 85610; 85730; 93970; 99283; 99284

== ENCOUNTER 2024-10-17 11:39 | Emergency (ER) | payer OTHER, SELFPAY ==
--- NOTE | ~2024-10-17 | CT_ITS ---
EXAMINATION: CT CERVICAL SPINE WITHOUT CONTRAST CLINICAL INFORMATION: Fall, neck pain. COMPARISON: None available. TECHNIQUE: Spiral CT imaging of the cervical spine performed in axial plane without contrast. Multiplanar reformatted images were constructed from the axial data set. This CT examination was performed using dose optimization techniques as appropriate, variously including the following: *Automated exposure control *Adjustment of mA and/or kV according to patient size (this includes techniques or standardized protocols for targeted exams where dose is matched to indication/reason for exam; i.e. extremities or head) *Use of iterative reconstruction technique FINDINGS: CORONAL ALIGNMENT: -Normal. SAGITTAL ALIGNMENT: -Normal. No subluxations. C1-C2 AND CRANIOCERVICAL JUNCTION: -Intact and normally aligned. There are mild degenerative changes in the anterior atlantoaxial joint. VERTEBRAL BODIES AND FACETS: -No fracture, compression deformity, or suspicious bone lesion. -Normal facet alignment bilaterally. There are are mild bilateral degenerative facet changes. DISCS: -Mild disc degeneration present at C6-7 and C7-T1. CENTRAL CANAL: -No evidence of high-grade central canal narrowing or large disc herniation allowing for modality limitations. PREVERTEBRAL AND PARAVERTEBRAL SOFT TISSUES: -No edema, soft tissue swelling, or abnormal fluid collection. -The thyroid is small. It is otherwise normal. -Mild to moderate left greater than right carotid bulb calcifications. LUNG APICES: -Clear without pneumothorax. CT/CT cervical spine wo IV con IMPRESSION: 1. No CT evidence of acute cervical spine fracture or injury. Electronically signed by: Dima Esqueda MD 10/17/2024 01:06 PM EDT
--- NOTE | ~2024-10-17 | CT_ITS ---
EXAMINATION: CT HEAD WITHOUT IV CONTRAST HISTORY: Fall, contusion posterior scalp, headache, on Coumadin. TECHNIQUE: Unenhanced helical CT of the head was performed per standard departmental protocol. Coronal and sagittal reformats of the head were also evaluated. One or more of the following techniques was used for dose reduction: Automated exposure control, adjustment of the mA and/or kV according to patient size, use of iterative reconstruction technique. DLP: 533 mGy-cm COMPARISON: There are no prior studies available for comparison. FINDINGS: BRAIN: There is diffuse prominence of the ventricular system and cortical sulci, consistent with atrophy. Periventricular and subcortical white matter hypodensities are noted which are nonspecific, but often seen in the setting of small vessel ischemic disease. There is no mass effect or midline shift. No intra- or extra-axial fluid collections are identified. SINUSES: The visualized paranasal sinuses are clear. The mastoid air cells and middle ear cavities are well pneumatized. ORBITS: The visualized orbits are unremarkable. BONES/SOFT TISSUES: The extracranial soft tissues are unremarkable. The calvarium is intact. No suspicious lytic or sclerotic lesions. CT/CT head/brain wo IV con IMPRESSION: No acute intracranial abnormality. Electronically signed by: Chase Maria MD 10/17/2024 01:01 PM EDT
[2024-10-17 11:43] VITALS: BP 144/57; BP 156/46; PULSE 64; PULSE 72; RESP 18; TEMP 36.7; O2SAT 97; O2SAT 98; BMI 41.6
--- NOTE | 2024-10-17 12:00 | ED.FALL ---
HPI - Fall General Chief Complaint: Fall Stated Complaint: Slip and fall in shower, pos thinners Time Seen by Provider: 10/17/24 11:52 History of Present Illness ED Provider: Dr. 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 Patient states she was feeling fine and was in her usual state of health. She states she got into the shower, and turned on the water and reached for the shower bar but missed. She states that this caused her to fall backwards and strike her head on the wall. She denied loss of consciousness but she was unable to get out of her bath tub, she pulled her alarm cord and staff was unable to get her out of the bath tub therefore they called 911 and she was brought to emergency department by ambulance for evaluation for evaluation. At the time my evaluation the patient is complaining of posterior headache in the area where she struck her head, the pain is 8/10 in his a sharp pinching sensation. She denied nausea, vomiting, weakness. She is also complaining of neck pain. Related Data Previous Rx's ?Medication ?Instructions ?Recorded azithromycin 500 mg tablet See Rx Instructions PO .COMPLEX #3 01/13/24 tabs Allergies Allergy/AdvReac Type Severity Reaction Status Date / Time doxycycline Allergy Unknown Verified 10/17/24 11:47 latex Allergy Unknown Verified 10/17/24 11:47 rosuvastatin Allergy Unknown Verified 10/17/24 11:47 Sulfa (Sulfonamide Allergy Unknown Verified 10/17/24 11:47 Antibiotics) Review of Systems Review of Systems: Yes all other systems are reviewed and are negative [facility] Past Medical History [facility] Narrative: Social history: The patient lives alone in her assisted living facility. She denies tobacco, alcohol and drug use Social History Social History Alcohol intake: never Advance Directives: No Advance Directives Information Provided: Yes Do you have a plan to hurt others: No Plan Physical Exam Vital Signs: Vital Signs: Last Vital Signs Temp 98.1 F 10/17/24 11:43 Pulse 64 10/17/24 11:43 Resp 18 10/17/24 11:43 BP 156/46 H 10/17/24 11:43 Pulse Ox 97 10/17/24 11:43 O2 Del Method Room Air 10/17/24 11:43 BMI result Body Mass Index 41.6 Vital signs revealed an elevated blood pressure otherwise unremarkable Exam: General: Awake, alert in no distress Head: Normocephalic, atraumatic, tenderness palpation over the posterior scalp with no hematoma or skin breakdown EENT: PERRL, Lids normal, sclera normal, conjunctiva normal, nose normal , ears normal, throat without erythema or exudates Neck: Supple, no adenopathy Lung: breath sounds symmetric, no wheezing, rales or rhonchi Chest: symmetric movement, nontender Heart: regular rate and rhythm, normal S1, S2 no murmurs or rubs Abdomen: soft, non-tender, nondistended, normal bowel sounds Back: no vertebral tenderness, no CVAT Extremities: no deformities, moves all extremities symmetrically Neuro: Awake, alert, oriented, normal speech, cranial nerves intact, moves all extremities symmetrically Psych: Pleasant, cooperative Medications Administered Discontinued Medications Generic Name Dose Route Start Last Admin Trade Name Kitq PRN Reason Stop Dose Admin Acetaminophen 975 mg 10/17/24 12:16 10/17/24 12:23 Acetaminophen 325 Mg Tablet PO 10/17/24 12:17 975 mg ONCE STA Administration Medical Decision Making Medical Decision Making MDM Narrative: 78 year female with a past medical history of HTN, bipolar disorder, CKD stage 3, anxiety, hypothyroidism, 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 Patient states she was feeling fine and was in her usual state of health. She states she got into the shower, and turned on the water and reached for the shower bar but missed. She states that this caused her to fall backwards and strike her head on the wall. She denied loss of consciousness but she was unable to get out of her bath tub, she pulled her alarm cord and staff was unable to get her out of the bath tub therefore they called 911 and she was brought to emergency department by ambulance for evaluation for evaluation. At the time my evaluation the patient is complaining of posterior headache in the area where she struck her head, the pain is 8/10 in his a sharp pinching sensation. She denied nausea, vomiting, weakness. She is also complaining of neck pain. Vital signs revealed elevated blood pressure otherwise unremarkable. Exam revealed tenderness palpation of her her posterior scalp with no hematoma or abrasions noted. Differential diagnosis: ?Includes but is not limited to skull fracture, intracranial bleed, neck fracture, anemia, electrolyte abnormalities, coagulation abnormalities Course: 12:19 There were the following tests on the patient: CBC, CMP, PT/INR, PTT, CT head and cervical spine without IV contrast. Patient was treated with the following: Tylenol 975 mg orally for her headache. 14:08 My independent interpretation patient's laboratory evaluation is as follows: Chronic normocytic anemia with an H&H of 11.2 and 35. INR is therapeutic at 2.3. CMP was normal.CT scan of the patient's head and neck revealed no acute findings. Patient's workup is negative which is reassuring. The patient states she is feeling better after receiving the Tylenol. She has no complaints. Patient states that her daughter can pick her up and she will be discharged home in the care of her daughter. She was given printed and verbal instructions on closed head injury. Admission/Observation Consideration of admission/observation: Escalation of care including admission/observation considered (Yes) Lab Data MDM Lab Attestation statement: I reviewed the patient's lab results. 10/17/24 12:28 10/17/24 12:28 Labs: Lab Results 10/17/24 Range/Units 12:28 WBC 6.3 (4.8-10.8) X10*3/uL RBC 3.83 L (4.20-5.50) X10*6/uL Hgb 11.2 L (12.0-16.0) g/dl Hct 35.0 L (37.0-47.0) % MCV 91.4 (80.0-98.0) fL MCH 29.2 (27.0-33.0) pg MCHC 32.0 (31.0-35.0) g/dl RDW 13.4 (11.0-16.0) % Plt Count 211 (160-400) X10*3/uL MPV 9.3 L (9.4-12.3) fL Immature Gran % (Auto) 0.6 H (0.0-0.4) % Neut % (Auto) 55.1 (45-73) % Lymph % (Auto) 29.5 (20-40) % [place] % (Auto) 10.8 (2-11) % Eos % (Auto) 3.0 (0-4) % Baso % (Auto) 1.0 (0-2) % Lymph # (Auto) 1.9 (1.2-4.9) X10*3/uL [place] # (Auto) 0.7 (0.1-1.2) X10*3/uL Eos # (Auto) 0.2 (0.0-0.4) X10*3/uL Baso # (Auto) 0.1 (0.0-0.2) X10*3/uL Abs Immat Gran (auto) 0.04 H (0.00-0.03) X10*3/uL Absolute Neuts (auto) 3.5 (2.0-8.3) x10*3/uL Absolute Nucleated RBC 0.000 (0.0-0.012) X10*3/uL Nucleated RBC % (auto) 0.0 (0.0-0.2) /100WBC PT 26.6 H D (10.9-12.4) SEC INR 2.3 H (0.9-1.1) APTT 40.3 H (26.0-36.8) SEC Sodium 138 (135-145) mmol/L Potassium 5.1 (3.3-5.1) mmol/L Chloride 106 (96-108) mmol/L Carbon Dioxide 26 (22-29) mmol/L Anion Gap 11 L (12-20) BUN 18 H (9-16) mg/dL Creatinine 1.00 (0.5-1.4) mg/dL Estim Creat Clear Calc 61.2 Estimated GFR 54 Random Glucose 119 H (60-115) mg/dL Calcium 8.9 (8.4-10.2) mg/dL Total Bilirubin 0.3 (0.0-1.0) mg/dL AST 24 (5-31) U/L ALT 16 (0-31) U/L Alkaline Phosphatase 75 (39-117) U/L Total Protein 6.3 L (6.5-8.0) g/dL Albumin 4.1 (3.5-5.0) g/dL Radiology Impression Radiologist Impression: CT head/brain wo IV con IMPRESSION: No acute intracranial abnormality. Electronically signed by: Chase Maria MD 10/17/2024 01:[address] cervical spine wo IV con IMPRESSION: 1. No CT evidence of acute cervical spine fracture or injury. Electronically signed by: Dima Esqueda MD 10/17/2024 01:06 PM EDT Chronic Conditions Patient?s care impacted by: Other (DVT on warfarin therapy) Discharge Plan Discharge Clinical Impression: Fall in shower, Neck pain, On warfarin therapy Closed head injury Qualifiers: Encounter type: initial encounter Qualified Code(s): S09.90XA - Unspecified injury of head, initial encounter Headache Qualifiers: Headache chronicity pattern: acute headache Intractability: not intractable Patient Disposition: Home, Self-Care Instructions: Head Injury (ED) Additional Instructions: The CT scan of your head revealed no skull fracture no bleeding in the brain. The CT scan of your neck revealed no broken bones Your blood work was unremarkable. Your INR (marker of effect in his of Coumadin) was therapeutic at 2.3. Continue take your Coumadin as prescribed by your provider. Follow the closed head injury instructions. Take Tylenol (acetaminophen) 500 mg pills, 2 pills every 6 hours as needed for pain or fever. Apply ice to the back of your head for 10-15 minutes 4 to 6 times a day if you are having pain in this area. Follow-up with your doctor in 2 days. Please return to the emergency department if your symptoms get worse or if you develop any symptoms that are concerning to you. Prescriptions: No Action azithromycin 500 mg tablet See Rx Instructions .ROUTE .COMPLEX Qty: 3 0RF Rx Instructions: For 250 mg dose pack: take 500 mg today (day 1), then 250 mg for 4 days (days 2-5) Print Language: Serbian
[2024-10-17 12:33] LABS: MANUAL DIFF FLAG NO
[2024-10-17 12:34] LABS: Hematocrit 35.0 % (37.0-47.0); Hemoglobin 11.2 g/dl (12.0-16.0); Imm Gran Abs Auto 0.04 X10*3/uL (0.00-0.03); Imm Gran Pct Auto 0.6 % (0.0-0.4); Lymphocytes Absolute Auto 1.9 X10*3/uL (1.2-4.9); Mean Corpuscular HGB Conc 32.0 g/dl (31.0-35.0); Mean Corpuscular Hemoglobin 29.2 pg (27.0-33.0); Mean Corpuscular Volume 91.4 fL (80.0-98.0); NRBC Abs Auto 0.000 X10*3/uL (0.0-0.012); NRBC Pct Auto 0.0 /100WBC (0.0-0.2); Platelet Count 211 X10*3/uL (160-400); Red Blood Count 3.83 X10*6/uL (4.20-5.50); White Blood Count 6.3 X10*3/uL (4.8-10.8)
[2024-10-17 12:39] LABS: INTERNATIONAL NORM RATIO 2.3 (0.9-1.1); Prothrombin Time 26.6 SEC (10.9-12.4)
[2024-10-17 12:42] LABS: Partial Thromboplastin Time 40.3 SEC (26.0-36.8)
[2024-10-17 12:48] LABS: Alanine Aminotransferase 16 U/L (0-31); Albumin Level 4.1 g/dL (3.5-5.0); Alkaline Phosphatase 75 U/L (39-117); Anion Gap 11 (12-20); Aspartate Amino Transferase 24 U/L (5-31); Blood Urea Nitrogen 18 mg/dL (9-16); Calcium 8.9 mg/dL (8.4-10.2); Carbon Dioxide 26 mmol/L (22-29); Chloride 106 mmol/L (96-108); Creatinine Clr Calc Pharmacy 61.2; Estimated Glomerular Filt Rate 54; Potassium 5.1 mmol/L (3.3-5.1); Sodium 138 mmol/L (135-145); Total Protein 6.3 g/dL (6.5-8.0)
--- OUTSIDE RECORDS SUMMARY | 2024-10-17 14:06 | XMS_ITS | Data Portability ---
Author Organization [place] - [facility], [facility], [facility] Address [address] [place] [id number] Care Team Providers Care Road Traffic Controller Name Role Phone MELLISSAIDALMIS SWARTZ Primary Care Provider Assessment Encounter Date Assessment Date Assessment LastModified by Organization Details LastModified Time 12/04/2021 12/04/2021 Time On Scene with Patient: 00:28:19 75 YO F patient establishing care with . She complains of cough with occasional wheeze which is worse in supine and is using double pillow in bed. She is using PROAIR inhaler as needed for cough. She also complains of waking to her eyes glued shut with continous drainage from both eyes. PMHx includes htn, osteopenia, bipolar with depression, stroke (on Coumadin), hdl, hypothyroidism, mild aortic stenosis, MO. 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 Alert and oriented. NAD. HEENT: Normocephalic, atraumatic, EOMI, bilateral rope like yellow exudate, with injected conjunctiva, sclera injected, nares congested, left ear cerumen impaction, PND RESP:BLCTA, 02 sat wnl, no use of accessory muscles, completing sentences, CV:RRR S1,S2 ABD: Deferred MUSC:Moves all extremities Extremity:No edema or cyanosis PSYCH:Pleasant. Test: Rapid Covid negative DDX: pneumonia, asthma exacerbation, URI, bronchitis. Plan: -Lung sounds clear. Continue to use PROAIR as needed. Less likely respiratory disease. -Abx sent for rachel eye infection. Recommended washing hands frequently to prevent further spreading. -Fluticasone nasal spray prescribed to assist with nasal congestion. -Debrox prescribed for cerumen impaction. The patient is advised to make an appt with PCP in 3-5 days to discuss ongoing symptoms/ further management. The patient is also advised to go to the ED immediately for any worsening symptoms. The patient understood and agreed with this plan. The patient was given discharge instructions and all questions were answered prior to DH team departure. 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 Was seen by on 12/04 dx with bilat conjunctivitis and PND/cough. She just started her eye drops 3 days ago with eyes starting to improve. Uses inhaler and was going to use her nebulizer but could not turn it on. No fever or chills; No shortness of breath, chest pain; sleeping more upright due to cough. Just started taking Mucinex. Cough now greenish. Concerned as she gets bronchitis often. Eating and drinking well. Also complains of left proximal hand pain/palmar surface. States while hammering a knife trying to cut a squash and her hand hit the surface of the counter. Hurts when she pushes herself off the couch. Exam: pleasant, non-toxic female in no acute distress; VS WNL; bilat conjunctiva with no injection or purulent drainage; moist mucus membranes; no cervical lymphadenopathy; Breathsounds bilat clear with good areration all peterson; tight, bronchospastic nonprod cough; abd assessment negative; no edema; no pain or swelling to left palmar surface but some mild pain in the proximal palm with wrist flexion. full mobility/full CMS Vital Signs: 148/78; 60; 18; 93%; 98.1 DDx considered, but not limited to: -Asthmatic bronchitis: most likely due to history and current clinical presentation -Pneumonia: considered due to cough but not likely due to afebrile, clear BS -CHF: considered due to cough, unable to lie flat due to cough but unlikely due to clear lungs, no edema -left hand contusion: most likely due to clinical presentation -Left hand fracture Work up/Results: Ordered CXR to assess for any pneumonia; Left hand xray to ensure no fx; ordered medrol dose dayo Plan/Discussion: Asthmatic Bronchitis: -Medrol dose pack -Mucinex BID x 5-7 days -Nebulizer TID next 5-7 days -Increase fluids -CXR Left hand Injury -Most likely contusion: mechanism of injury/4 days ago -May use Moist heat/vicodin for any pain -xray left hand PCP follow up 5-7 days; continue eye drops as ordered ED precautions Proper Personal Protective Equipment (PPE), including gloves, eye protection and masks were donned and doffed appropriately and all equipment cleaned using approved technique with germicidal disposable wipes prior to and after care of this patient according to [facility] infection prevention protocols. [email or web address] Not available 12/12/2021 14:30:57 Plan of Treatment Reminders Order Date Submit Date Provider Last Modified By Organization Details Last Modified Time Details Appointments None recorded. Lab rapid SARS CoV 2 Ag, QL IA, respirato ry specimen 2021 [facility], [address] [place] [address], [id number], 17:26:39 Referral None recorded. Procedures None recorded. Surgeries None recorded. Imaging XR, hand, 3 or more view 2021 [facility] ([facility]), [address] [place] [address], [address], 2 13:52:01 XR, chest, 2 view 2021 [email or web address] 1 [facility] Corporate Office ([facility] [address] [place], [address], 2 11:11:32 Medication Orders Medrol (Dayo) 4 mg tablets in a dose pack 2021 [facility]Pharmacy #[id number], [address] [place], [address], 14:20:36 Debrox 6.5 % ear drops 2021 [facility]/Pharmacy #[id number], [address] [place], [address], 15:15:10 [email or web address] n 0.3 % eye drops 2021 [email or web address] [facility]/Pharmacy #[id number], [address] [place], [address], 13:44:51 Flonase Allergy Relief 50 mcg/actua tion nasal spray,pushpa pension 2021 022 [email or web address] 83 [facility]/Pharmacy #[id number], [address] [place], [address], 16:53:18 Patient TargetsNo targets recorded. Patient Instructions Encounter Date Encounter Id Patient Instructions Last Modified By Organization Details Last Modified Time 12/04/2021 [id number] You were seen for cough and eye discharge. Antibiotic drops were prescribed. The patient is advised to make an appt with PCP in 3-5 days to discuss ongoing symptoms/ further management. The patient is also advised to go to the ED immediately for any worsening symptoms. The patient understood and agreed with this plan. The patient was given discharge instructions and all questions were answered prior to DH team departure. [email or web address] Not available 12/04/2021 17:04:52 12/12/2021 [id number] -You were seen today for persistent cough and left hand pain -We ordered both a chest and left hand xray -Continue with the Mucinex twice a day for the net 5-7 days and use your nebulizer 3 times a day for the next 5-7 days -We called in a prescription for a steroid taper to help with your cough -Increase your fluids -May take Vicodin as needed for any pain -Call you PCP for a follow up visit in 5-7 days but seek medical attention if any increased cough, fever, shortness of breath or chest pain [email or web address] Not available 12/12/2021 14:05:56 Reason for Referral None Reported. Results Created Date Observation Date Name Description Value Unit Range Abnormal Flag Note LastModifiedBy Organization Detail LastModifiedTime 12/05/19 22 12/04/2021 rapid SARS CoV 2 Ag, QL IA, respi rator y speci men Covid-19 (ref: neg) negati ve Not Available [facility] - [facility] [address] [facility], [place], [address], 12/04/2021 15:12:53 12/05/19 22 12/04/2021 rapid SARS CoV 2 Ag, QL IA, respi rator y speci men Control Visual ized/V alid Not Available [facility] - [facility] [address] [facility], [place], [address], 12/04/2021 15:12:53 12/05/19 22 12/04/2021 rapid SARS CoV 2 Ag, QL IA, respi rator y speci men Location [facility], [address] [facility], [place] [address], [id number] Not Available [facility] - Home [address] [place], [address], 12/04/2021 15:12:53 12/16/19 22 12/15/2021 XR, chest , 1 view XRAY CHEST 1 VIEW FINDIN GS: Lungs: No focal consol idatio n. Pulmon clement vascul ature is within normal [facility] [address] [facility] [address], [place], [address], 12/15/2021 15:20:42 12/16/19 22 12/15/2021 XR, hand, 3 or more view HAND MINIMU M 3 VIEWS, LEFT FINDIN GS: No acute fractu re or disloc ation. The osseou s struct ures appear intact . Joint spaces are narrow ed. Soft tissue s are unrema rkable . CONCLU DEBI: No acute findin gs. Degene rative change s. Consid er a repeat study if sympto ms contin ue to persis t or progre ss. ELECTR ONICAL LY SIGNED BY AWILDA BROWN M.D. 022 1:43:2 2 PM EDT. XRAY CHEST 1 VIEW Result s: Lungs: No focal consol idatio n. Pulmon clement vascul ature is within normal limits . Promin ent lung markin gs. Pleura : No pneumo thorax . No pleura l effusi on. Heart and Medias tinum: The cardio medias tinal silhou ette is enlarg ed in size and contou r. Osseou s struct ures: Visual ized osseou s struct ures are stable . No radiop aque foreig n body. Conclu debi: No acute cardio pulmon clement proces s. Electr onical ly signed by AWILDA BROWN M.D. 022 1:43:2 2 PM EDT. HAND MINIMU M 3 VIEWS, LEFT Result s: No acute fractu re or disloc ation. The osseou s struct ures appear intact . Joint spaces are narrow ed. Soft tissue s are unrema rkable . Conclu debi: No acute findin gs. Degene rative change s. Consid er a repeat study if sympto ms contin ue to persis t or progre ss. Electr onical ly signed by AWILDA BROWN M.D. 022 1:43:2 2 PM EDT. [facility] [address] [facility] [address], [place], [address], 12/15/2021 15:20:21 Result Notes Documentation Provider Name and Address Organization Details Recorded Time Xr, Chest, 1 View : XRAY CHEST 1 VIEW FINDINGS: Lungs: No focal consolidation. Pulmonary vasculature is within normal Vandana Noguera NP [address] [facility], [place], [address], [place] [facility] 12/15/2021 15:20:42 Xr, Hand, 3 Or More View : HAND MINIMUM 3 VIEWS, LEFT FINDINGS: No acute fracture or dislocation. The osseous structures appear intact. Joint spaces are narrowed. Soft tissues are unremarkable. CONCLUSION: No acute findings. Degenerative changes. Consider a repeat study if symptoms continue to persist or progress. ELECTRONICALLY SIGNED BY JANA BROWN M.D. 12/15/2021 1:43:22 PM EDT. XRAY CHEST 1 VIEW Results: Lungs: No focal consolidation. Pulmonary vasculature is within normal limits. Prominent lung markings. Pleura: No pneumothorax. No pleural effusion. Heart and Mediastinum: The cardiomediastinal silhouette is enlarged in size and contour. Osseous structures: Visualized osseous structures are stable. No radiopaque foreign body. Conclusion: No acute cardiopulmonary process. Electronically signed by JANA BROWN M.D. 12/15/2021 1:43:22 PM EDT. HAND MINIMUM 3 VIEWS, LEFT Results: No acute fracture or dislocation. The osseous structures appear intact. Joint spaces are narrowed. Soft tissues are unremarkable. Conclusion: No acute findings. Degenerative changes. Consider a repeat study if symptoms continue to persist or progress. Electronically signed by JANA BROWN M.D. 12/15/2021 1:43:22 PM EDT. Vandana Noguera NP [address] [place], [address], [place] - [facility] 12/15/2021 15:20:21 Procedures Surgical History Date Name Laterality Status Provider Name and Address Organization Details Recorded Time 022 Medication Review completed Vandana Noguera NP [address] [place], [address], [place] [facility] 12/12/2021 14:31:04 total knee [place], [address], [place] [facility] 12/12/2021 13:45:56 Cholecystectomy completed Vandana Noguera NP [address], [place], [address], [place] [facility] 12/12/2021 13:46:16 Appendectomy completed Vandana Noguera NP [address], [place], [address], [place] [facility] 12/12/2021 13:46:24 Imaging Results None recorded. Procedure Notes None recorded. Medical Equipment None Reported. Allergies Allergen ID Allergen Name Allergen Category Reaction Reaction Severity Criticality Documentation Date Start Date Code Code System Note Provider Name and Address Organization Details Recorded Time Robaxin medicatio n Not available Not available Not available 12/04/2021 86582 5 RxNorm October HIREN De La Cruz [address] [place], [address], [place] [facility] 09/02/202 2 14:14:42 147536 Ultram medicatio n Not available Not available Not available 12/04/2021 47610 6 RxNorm Elke De La Cruz , [employer] [address], [place], [address], [place] [facility] 2 14:15:03 [id number] Substance with sulfonami de structure and antibacte rial mechanism of action (substanc e) medicatio n Not available Not available Not available 12/04/2021 28908 8003 SNOMED Elke De La Cruz , B[employer] CENTER MANAGER [address], [place], [address], [place] [facility] 2 14:15:10 [id number] Robitussi n medicatio n Not available Not available Not available 12/04/2021 02851 2 RxNorm Elke De La Cruz , B[employer] C[employer] MANAGER [address], [place], [address], [place] [facility] 2 14:15:19 Medications Name Sig Start Date Stop Date Status Note LastModified by Organization Details LastModified Time atorvastati n 80 mg tablet TAKE 1 TABLET BY MOUTH EVERY DAY active Not Available Not Available No t Available clonidine HCl 0.1 mg tablet TAKE 1 TABLET BY MOUTH TWICE A DAY active Not Available Not Available No t Available cetirizine 5 mg tablet TAKE 2 TABLETS BY MOUTH EVERY DAY NEEDED FOR ALLERGY SYMPTOMS active Not Available Not Available No t Available hydrocodone 5 mg-acetamin ophen 325 mg tablet TAKE 1 TABLET BY MOUTH TWICE A DAY NEEDED FOR SEVERE PAIN. active Not Available Not Available No t Available Debrox 6.5 % ear drops INSTILL 5 DROPS INTO AFFECTED EAR(S) BY OTIC ROUTE 2 TIMES PER DAY 2021 active Not Available Not Available Not Avai lable lamotrigine 25 mg tablet TAKE 1 TABLET BY MOUTH TWICE A DAY active Not Available Not Available No t Available levothyroxi ne 75 mcg tablet TAKE 1 TABLET BY MOUTH EVERY DAY active Not Available Not Available No t Available benzonatate 100 mg capsule TAKE 1 CAPSULE BY MOUTH 3 TIMES A DAY FOR 10 DAYS FOR COUGH. SWALLOW WHOLE DO NOT CRUSH OR CHEW. active Not Available Not Available No t Available doxycycline monohydrate 100 mg capsule TAKE 1 CAPSULE BY MOUTH TWICE A DAY FOR 7 DAYS 12/04 completed Not Available Not Available Not Available econazole nitrate 1 % topical cream APPLY FINGER-TI P AMOUNT TO AFFECTED REGION ONCE DAILY FOR TWO WEEKS 12/12 completed Not Available Not Available Not Available tobramycin 0.3 % eye drops INSTILL 1 DROP INTO AFFECTED EYE EVERY 4 HOURS 12/12 completed Not Available Not Available Not Available lisinopril 10 mg tablet TAKE 1 TABLET BY MOUTH EVERY DAY active Not Available Not Available No t Available warfarin 5 mg tablet TAKE 1/2-1 TABLET BY MOUTH DAILY DIRECTED BY [facility] active Not Available Not Available No t Available lisinopril 5 mg tablet TAKE 1 TABLET BY MOUTH EVERY DAY 12/04 completed Not Available Not Available Not Available methylpredn isolone 4 mg tablets in a dose pack Take 1 dose pk by oral route. active Not Available Not Available No t Available albuterol sulfate HFA 90 mcg/actuati on aerosol inhaler INHALE 2 PUFFS EVERY 6 HOURS NEEDED FOR WHEEZING OR SHORTNESS OF BREATH active Not Available Not Available No t Available fluticasone propionate 50 mcg/actuati on nasal spray,suspe nsion SPRAY EACH NOSTRIL DAILY FOR 14 DAYS NEEDED active Not Available Not Available No t Available Anti-Itch Medicated 1 %-1 % topical cream APPLY TO AFFECTED AREA TWICE DAILY FOR ITCHING 12/12 completed Not Available Not Available Not Available enoxaparin 100 mg/mL subcutaneou s syringe INJECT THE CONTENTS OF 1 SYRINGE SUBCUTANE OUSLY EVERY 12 HOURS. DISCONTIN UE WHEN INR IS BETWEEN 2 AND 3 12/12 completed Not Available Not Available Not Available escitalopra m 20 mg tablet TAKE 1 TABLET BY MOUTH EVERY DAY active Not Available Not Available No t Available ferrous sulfate 324 mg (65 mg iron) tablet,janeth yed release TAKE 1 TABLET BY MOUTH EVERY DAY active Not Available Not Available No t Available Pradaxa 150 mg capsule TAKE 1 CAPSULE BY MOUTH TWICE A DAY 12/04 completed Not Available Not Available Not Available calcium 500 mg (as carbonate)- vitamin D3 15 mcg (600 unit) tablet TAKE 1 TABLET BY MOUTH EVERY DAY active Not Available Not Available No t Available Vitals Date Recorded Body temperature Heart rate Respiratory rate Oxygen saturation Oxygen saturation in Arterial blood by Pulse oximetry Systolic And Diastolic Provider Name and Address Organization Details Last Updated DateTime 2 98.1 [degF] 60 /min 18 /min 96 % 96 % 140/66 mm[Hg] Not Available [facility] 2 14:30:42 Date Recorded Heart rate Oxygen saturation Oxygen saturation in Arterial blood by Pulse oximetry Respiratory rate Body temperature Systolic And Diastolic Provider Name and Address Organization Details Last Updated DateTime 2 60 /min 93 % 93 % 18 /min 98.1 [degF] 148/78 mm[Hg] Not Available [facility] 2 13:48:19 Social History Question Answer Notes LastModified by Organizat ion Details LastModified Time Tobacco Smoking Status Former Smoker October Jono, HIREN [address], [place], [address], [place] [facility] 12/04/2021 14:33:44 When Did You Quit Smoking? 16+yearssince lastcigaryen [email or web address] Information not available 12/04/2021 Within The Past 12 Months, Has It Happened That The Food You Bought Just Didn't Last And You Didn't Have Money To Get More. No [email or web address] Information not available 12/04/2021 Within The Past 12 Months, Have You Worried That Your Food Would Run Out Before You Got Money To Buy More. No [email or web address] Information not available 12/04/2021 Fall Risk: Do You Feel Unsteady When Standing Or Walking? Yes [email or web address] Information not available 12/04/2021 We Know That How And When People Interact With Friends And Family Can Be Very Different From Person To Person. How Often Do You Have The Opportunity To See Or Talk To People That You Care About And Feel Close To? (Ex: Talking To Friends On The Phone Or Visiting Friends Or Family Or Going To Taoist Or Club Meetings) Choose Not To Answer This Question [email or web address] Information not available 12/04/2021 Excessive Alcohol Or Drug Use No [email or web address] Information not available 12/04/2021 Does This Patient Have A PCP? Yes Information not available 12/04/2021 Has The Patient Seen Their PCP In The Past 6 Months? Yes [email or web address] Information not available 12/04/2021 Is This Patient In Hospice? No [email or web address] Information not available 12/04/2021 We Know From Many Of Our Patients That Covering All Of Their Costs Can Be Difficult At Times. This Can Cause Stress And Impact Health. In The Past Year, Have You Been Unable To Get Any Of The Following When It Was Really Needed? No [email or web address] Information not available 12/04/2021 What Is Your Housing Situation Today? I Have Housing [email or web address] Information not available 12/04/2021 Would You Like Help Connecting To Resources? None [email or web address] Information not available 12/04/2021 Do You Have A Medical Power Of Commercial Lease Administrator? No [email or web address] Information not available 12/04/2021 Do You Have An Out Of Hospital DNR? No [email or web address] Information not available 12/04/2021 At What Age Did You Start Smoking Tobacco? 17 [email or web address] Information not available 12/04/2021 How Many Years Have You Smoked Tobacco? 5 [email or web address] Information not available 12/04/2021 Sex: Unknown Functional Status Question Answer Note LastModified by Organizat ion Details LastModified Time Do you use any illicit or recreational drugs? No [email or web address] Information not available 12/04/2021 Do you or have you ever used any other forms of tobacco or nicotine? No [email or web address] Information not available 12/04/2021 What is your level of alcohol consumption? None [email or web address] Information not available 12/04/2021 Mental Status None recorded. Family History Nothing Reported Notes:pt does not know Medical History Condition Response Coronary Artery Disease Y Hypothyroidism Y COPD N Depression Y A-fib N Diabetes N CHF N Cancer N Stroke Y Dementia N Asthma Y High Cholesterol Y Hypertension Y Osteoporosis Kidney Disease Y Gynecological HistoryNo gynecological history recorded. Obstetrics History GPAL:G 0 P 0 0 0 0 Past Encounters Encounter ID Performer Location Encounter Start Date Encounter Closed Date Diagnosis/Indication Diagnosis SNOMED-CT Code Diagnosis ICD10 Code Diagnosis Note [id number] October HIREN De La Cruz [facility] - HOME [address] [facility] [place] [address] 12/04/2021 14:07:45 12/08/2021 13:12:07 Posterior rhinorrhea 03785051 R09.82 Acute conj unctivitis of bilateral eyes 3178468012 78819 H10.33 Impacted cerumen 0317697 6 H61.22 [id number] Vandana Noguera NP [facility] [address] [facility] [address] 12/12/2021 13:41:53 12/14/2021 12:48:45 Asthmatic bronchitis 370038996 J45.909 Contusion of left hand 9627147971 7170783 S60.222A Health Concerns Section Related Observation LastModified by Organization Detai ls LastModified Time None Recorded Concern Status LastModified by Organization Details LastModified Time None Recorded Advance Directives Directive N: unknown Payers Insurance Date Sequence Insurance Name Policy Number Policy Salazar Covered Member ID Salazar Member ID Guarantor Name 12/08/2021 1 [place] [facility] [employer] [facility] Vale Chávez [id number] Vale Chávez 12/12/2021 1 [place] [facility] Vale Chávez [id number] Vale Chávez 12/14/2021 1 [facility] - DOS PRIOR TO 2022 - DUAL ELIGIBLE (MEDICARE REPLACEMENT/ADV ANTAGE - HMO) Vale Chávez [id number] Vale Chávez 12/04/2021 1 *SELF PAY* Vale Chávez [id number] Vale Chávez 12/14/2021 1 [place] [facility] [employer] Vale Chávez [id number] Vale Chávez 12/08/2021 2 [facility] [employer] - DOS PRIOR TO 2022 - DUAL ELIGIBLE (MEDICARE REPLACEMENT/ADV ANTAGE - HMO) Vale Chávez [id number] Vale Chávez 12/04/2021 1 [facility] [employer] - DOS PRIOR TO 2022 - DUAL ELIGIBLE (MEDICARE REPLACEMENT/ADV ANTAGE - HMO) Vale Chávez [id number] Vale Chávez 12/04/2021 1 [place] [facility] Vale Chávez [id number] Vale Chávez 12/12/2021 1 [facility] [employer] - DOS PRIOR TO 2022 - DUAL ELIGIBLE (MEDICARE REPLACEMENT/ADV ANTAGE - HMO) Vale Chávez [id number] Vale Chávez 12/04/2021 2 [facility] [employer] [employer] - DOS PRIOR TO 2022 - DUAL ELIGIBLE (MEDICARE REPLACEMENT/ADV ANTAGE - HMO) Vale Chávez [id number] Vale Chávez Notes Date Note Type Note Provider Name and Address Organization Details Recorded Time 12/04/2021 text/html 75 YO F patient establishing care with . She complains of cough with occasional wheeze which is worse in supine and is using double pillow in bed. She is using PROAIR inhaler as needed for cough. She also complains of waking to her eyes glued shut with continous drainage from both eyes. PMHx includes htn, osteopenia, bipolar with depression, stroke (on Coumadin), hdl, hypothyroidism, mild aortic stenosis, [place]. 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 Was seen by on 12/04 dx with bilat conjunctivitis and PND/cough. She just started her eye drops 3 days ago with eyes starting to improve. Uses inhaler and was going to use her nebulizer but could not turn it on. No fever or chills; No shortness of breath, chest pain; sleeping more upright due to cough. Just started taking Mucinex. Cough now greenish. Concerned as she gets bronchitis often. Eating and drinking well. Also complains of left proximal hand pain/palmar surface. States while hammering a knife trying to cut a squash and her hand hit the surface of the counter. Hurts when she pushes herself off the couch. Vandana Noguera NP [address], [place], [address], [place] [facility] 12/12/2021 14:31:23 OBGyn Episode No OBEpisode recorded.
--- OUTSIDE RECORDS SUMMARY | 2024-10-17 14:06 | XMS_ITS ---
Author Organization [facility] Care Team Providers Care Marine Fitter Name Role Phone Elena Madera Unavailable Unavailable Vonnie Villalpando Unavailable Unavailable Lucia Hartman Unavailable Unavailable Andrea MARADIAGA, Norma Neff Unavailable Unavailable Kd, Sarah Unavailable Unavailable Maingi, Shadrack Unavailable Unavailable Allergies and adverse reactions Code CodeSystem Substance Reaction Severity StartDate Concern Status 39898 RXNORM traMADol Unknown 11/19/2020 active Sulfa Unknown 11/19/2020 active Robitussin Unknown 11/19/2020 active Robaxin Unknown 11/19/2020 active Plavix Unknown 11/19/[address] Penicillins Unknown 11/19/2020 activ e Nexium Unknown 11/19/2020 active Latex Unknown 11/19/2020 active Lasix Unknown 11/19/2020 active 2670 RXNORM Codeine Unknown 11/19/2020 active Celebrex Unknown 11/19/2020 active Care Team Name Role Address Phone Organization Dates Vonnie Villalpando PCP [address], [address], [place] (Office): : [facility] 11/19/2020 - 12/12/2020 [place], [address], [facility] (Office): : [facility] 11/19/2020 - 12/12/2020 Lucia Hartman [address] [place] [address] [address], [address], [facility] (Office): : [phone] [facility] 11/19/2020 - 12/12/2020 Norma Mendez NP [address] (Office): [facility] 11/19/2020 - 12/12/2020 Sarah Yi 819 [facility] [address] (Office): : [phone] [facility] 11/19/2020 - 12/12/2020 Reagan Livingston [address] (Office): : [facility] 11/19/2020 - 12/12/2020 Goals Section Goals Description Status Target Date Will have intake >75% of jamil ls W ill have stable weights W ill tolerate diet S kin intact W ill have no s/sx of dehydration Active 02/24/2021 Mental Status Section Date Assessment Total Score Description 12/12/2020 BIMS 15 cognitively int act CAM 0 No delirium ind icated PHQ-9 00 11/25/2020 BIMS 15 cognitively int act CAM 0 No delirium ind icated PHQ-9 00 Problems Problem # Description Date of onset Resolved Date Code CodeSystem Concern Status 1 ANXIETY DISORDER, UNSPECIFIED 11/20/[address] active 2 BIPOLAR DISORDER, UNSPECIFIED 11/20/[address] active 3 CELLULITIS OF RIGHT LOWER LIMB 11/20/[id number] active 4 HYPERLIPIDEMIA, UNSPECIFIED 11/20/[address] active 5 MAJOR DEPRESSIVE DISORDER, SINGLE EPISODE, UNSPECIFIED 11/20/[address] active 6 MUSCLE WEAKNESS (GENERALIZED) 11/20/[address] active 7 OTHER ABNORMALITIES OF GAIT AND MOBILITY 11/20/[address] active 8 PREPATELLAR BURSITIS, UNSPECIFIED KNEE 11/20/[address] active 9 UNSTEADINESS ON FEET 11/20/[address] active 10 WEAKNESS 11/20/[address] active Reason for Referral No Reasons for Referral Entered Social History Social History Observation Description Start Date End Date Code Code System Current Smoking Status Tobacco smoking consumption unknown 758087174 SNOMED CT Sex Assigned At Female 1945 05207-4 [facility] Gender Identity Vital Signs Code Code System Vitals Name Values and Units Timing Information 37734-2 [facility] Pain Level Value=0.0 12/12/2020 9279-1 [facility] Respiratory Rate Value=18.0 Units=/m in 12/12/2020 8310-5 [facility] Body Temperature Value=98.1 Units= F 12/12/2020 8867-4 [facility] Heart rate Value=75.0 Units=/min 01/2021 11863-2 [facility] O2 % BldC Oximetry Value=96.0 Units= % 12/12/2020 8462-4 [facility] Blood Pressure-Diastolic Value=79 Un its=mmHg 12/10/2020 8480-6 [facility] Blood Pressure-Systolic Cbntw=774 Un its=mmHg 12/10/2020
--- OUTSIDE RECORDS SUMMARY | 2024-10-17 14:06 | XMS_ITS | Clinical Summary ---
Author Organization [facility] ity Address [address] [place] [address] Care Team Providers Care Senior Formulation Scientist Name Role Phone Unavailable Primary Care Provider Unavailabl e Social History Tobacco Use Types Packs/Day Years Used Date Smoking Tobacco: Never Assessed Comments Unknown Sex and Gender Information Value Date Recorded Sex Assigned at Not on file Legal Sex Female 4:42 AM EST Gender Identity Not on file Sexual Orientation Not on file Plan of Treatment Health Maintenance Due Date Last Done Comments DTaP,Tdap,and Td Vaccines (1 - Tdap) 1965 Pneumococcal Vaccine: 50+ Ye ars (1 of 1 - PCV) 1996 Zoster Vaccines (1 of 2) 1996 RSV Immunization Adult Patie nts (1 - 1-dose 75+ series) 2021 COVID-19 Vaccine (1 - 2023-2 5 season) 2023 Influenza Vaccine (#1) 2024 HIB Vaccines Aged Out No longer eligi ble based on patient's age to complete this topic HPV Vaccines Aged Out No longer eligi ble based on patient's age to complete this topic Hepatitis A Vaccines Aged Out No long er eligible based on patient's age to complete this topic Hepatitis B Vaccines Aged Out No long er eligible based on patient's age to complete this topic IPV Vaccines Aged Out No longer eligi ble based on patient's age to complete this topic MMR Vaccines Aged Out No longer eligi ble based on patient's age to complete this topic Meningococcal ACWY Vaccine Aged Out N o longer eligible based on patient's age to complete this topic Meningococcal B Vaccine Aged Out No l onger eligible based on patient's age to complete this topic RSV Immunization Patients Un talya 20 months Aged Out No longer eligible b ased on patient's age to complete this topic Varicella Vaccines Aged Out No longer eligible based on patient's age to complete this topic
--- OUTSIDE RECORDS SUMMARY | 2024-10-17 14:06 | XMS_ITS | Patient Health Record ---
Author Organization [facility] Address [address] [place] [address] Care Team Providers Care Supervisor Cigar Making Machine Name Role Phone Julia Gordon Unavailable [phone] Allergies Allergen (clinical drug ingredient) Drug/Non Drug Allergy documented on EMR Reaction Allergy Type Onset Date Status sulfamethoxazole / trimethoprim Bactrim Unknown Drug Allergy Active Latex Latex Unknown Allergy Active Reason For Referral No Information Medications Medication SIG (Take, Route, Frequency, Duration) Notes Start Date End Date Status Ferrous Fumarate 324 (106 Fe) MG as directed Orally Active Pradaxa 150 MG 1 capsule Orally Twi ce a day; Duration: 30 day(s) Active Vitamin D3 Active Ventura Aspirin Active HYDROcodone-Acetaminophen 5-325 MG 1 tablet as needed Orally every 6 hrs Active lamoTRIgine 25 MG 1 tablet Orally; Duration: 30 day(s) Active Escitalopram Oxalate 20 MG 1 tablet Oral ly Once a day; Duration: 30 day(s) Active Levothyroxine Sodium 75 MCG as directed Orally Once a day Active cloNIDine HCl Active Eliquis 5 MG TAKE 1 TABLET BY MARYCHUY TH TWICE A DAY Oral; Duration: 90 Not-Taking rOPINIRole HCl 1 MG TAKE 1 TABLET BY MARYCHUY TH EVERYDAY AT BEDTIME Oral; Duration: 90 Active Vitamin D3 Active Ventolin HFA 108 (90 Base) MCG/ACT TAKE 2 PUFFS INTO THE LUNGS EVERY 4 HOURS NEEDED FOR COUGH/DYSPNEA/WHEEZE Inhalation; Duration: 16 Active HYDROcodone-Acetaminophen 5-325 MG (Schedule II Drug) TAKE 1 TABLET BY MOUTH TWICE A DAY Oral; Duration: 30 Active Medrol jeanna 4mg as directed orally a s directed; Duration: 6 days Active Paxil Active Vicodin Active Immunizations Vaccine Route Administration Date Status Comme nts COVID-19 [employer]/Yara Unknown 04/12/2021 Administered First Dose: 06/28/20 Booster Moderna Social History Tobacco Use: Social History Observation Description Date Details (start date - stop date) Former Smoker NA - NA Tobacco Use/Smoking Question Answer Notes Are you a: former smoker Additional Findings: Tobacco Non-User Current no n-smoker Alcohol Screen Question Answer Notes Did you have a drink containing alcohol in the p ast year? Yes Points 0 Interpretation Negative Tobacco use other than smoking: Question Answer Notes Are you an other tobacco user? No Problems Problem Type SNOMED Code ICD Code Onset Dates Problem Status W/U Status Risk Notes Problem Plantar wart (B07.0) Active confirmed Problem Gouty arthritis of left foot (5095632984947 103) Gouty arthritis of left foot (M10.9) Active confirmed Plan Of Treatment Pending Test Test Name Order Date *Uric Acid, Serum 04/01/2021 ESR 04/01/2021 X ray : Foot, left 3V 04/01/2021 Insurance Providers Payer Name Payer Address Payer Phone Subscriber Number Group Number Insured Name Patient Relationship to Insured Coverage Start Date Coverage End Date [facility] [employer] Claims [address] [place] [id number] Vale Chávez Self - patient is the insured Medical (General) History Medical History History ICD Code Back,Hip,and Knee pain Depression High blood pressure Joint implants/screws Glaucoma Stroke foot pain Surgical History Surgery Date(Month/Year) 2 knee surgery 2 total knee replacement Wrist Surgery - bar placed inside wrist Hospitalization History Reason Date(Month/Year) Fell of knee- pt had [facility] rehab for 6 w [facility] 05/2020
[2024-10-17 14:26] VITALS: BP 133/44; PULSE 58; RESP 16; TEMP 36.7; O2SAT 97
[2024-10-17 14:39] VITALS: BP 133/44; PULSE 58; RESP 16; TEMP 36.7; O2SAT 97
== END 2024-10-17 14:57 | disposition home or self-care (01) ==
PROVIDERS: Emergency Provider Emergency Medicine Emergency Medical Services
DX: S09.90XA Unspecified injury of head, initial encounter (principal); S19.9XXA Unspecified injury of neck, initial encounter; R51.9 Headache, unspecified; M54.2 Cervicalgia; X50.1XXA Overexertion from prolonged static or awkward postures, initial encounter; W18.2XXA Fall in (into) shower or empty bathtub, initial encounter; Z91.81 History of falling; Y93.9 Activity, unspecified; Y92.002 Bathroom of unspecified non-institutional (private) residence as the place of occurrence of the external cause; Y99.8 Other external cause status; Z79.899 Other long term (current) drug therapy; Z51.81 Encounter for therapeutic drug level monitoring
CPT/HCPCS: 36415; 70450; 72125; 80053; 85025; 85610; 85730; 99284

== ENCOUNTER → 2024-10-17 12:07 | Outpatient (BNV) | payer MEDICARE, SELFPAY | PROVIDERS: Emergency Provider Emergency Medicine Emergency Medical Services; Visit Provider Radiology Diagnostic Radiology | DX: M54.2 Cervicalgia (principal); S00.03XA Contusion of scalp, initial encounter; R51.9 Headache, unspecified; W19.XXXA Unspecified fall, initial encounter | CPT/HCPCS: 70450; 72125 ==

== ENCOUNTER 2024-11-06 11:20 | Inpatient (IN) | payer OTHER, SELFPAY ==
--- NOTE | ~2024-11-06 | CT_ITS ---
EXAMINATION: CT CHEST WITHOUT CONTRAST CLINICAL INFORMATION: Hypoxia, dyspnea on exertion, rule out pneumonia, COMPARISON: January 13, 2024 TECHNIQUE: Multidetector volumetric CT imaging of the chest was done. Axial MIP volume rendering provided. Sagittal and coronal reformatted images were obtained. This CT examination was performed using dose optimization techniques as appropriate, variously including the following: *Automated exposure control *Adjustment of mA and/or kV according to patient size (this includes techniques or standardized protocols for targeted exams where dose is matched to indication/reason for exam; i.e. extremities or head) *Use of iterative reconstruction technique DLP: 622 mGY*cm FINDINGS: LUNGS: The lungs are clear with no evidence of inflammation or nodules. MEDIASTINUM: The mediastinum is normal. CORONARY ARTERY CALCIFICATION: Present PLEURA: There is no pleural effusion. No pleural mass or thickening. AXILLA: No lymphadenopathy. UPPER ABDOMEN: There are clips from cholecystectomy. OSSEOUS STRUCTURES: Moderate to severe degenerative disc disease is evident in the midthoracic spine. Chronic inferior L2 Schmorl's node/compression fracture is noted. CT/CT chest wo IV con IMPRESSION: No acute pulmonary disease. Fleischner guidelines were followed. Electronically signed by: Venancio Quinones MD 11/06/2024 05:11 PM EDT
--- NOTE | 2024-11-06 11:26 | ED_ITS ---
HPI - SOB/Dyspnea General Chief Complaint: Dyspnea Stated Complaint: SOB ON EXERTION,89% RA PER EMS Time Seen by Provider: 11/06/24 11:26 Source: patient and EMS Mode of arrival: EMS Limitations: no limitations History of Present Illness ED Provider: Dr. 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 Patient states she has noticed dyspnea on exertion for proximally 2 days. Yesterday when she was walking with her daughter she had to stop frequently. Apparently when she was at physical therapy she was also noted to have dyspnea on exertion with a low O2 saturation. She followed up with her PCP today and when she walked into the office her O2 saturation was 66% on room air. Paramedics state that her O2 saturation on room air was 89%. The office also reported the patient had a low heart rate of 40 beats per minute. Patient states she has had shortness of breath in the past and has had to use inhalers. She does not wear oxygen at home. She denied orthopnea or paroxysmal nocturnal dyspnea. She has not noticed any increased swelling or pain in her lower extremities. The patient is on warfarin for DVTs and she has been compliant with his medication. She denied fever, chills, cough, shortness of breath, nausea, vomiting, diarrhea. The patient denied dysuria but states he has urinary frequency case she has been drinking more water. Related Data Previous Rx's ?Medication ?Instructions ?Recorded azithromycin 500 mg tablet See Rx Instructions PO .COM PLEX #3 01/13/24 tabs Allergies Allergy/AdvReac Type Severity Reaction Status Date / Time doxycycline Allergy Unknown Verified 11/06/24 11:33 latex Allergy Unknown Verified 11/06/24 11:33 rosuvastatin Allergy Unknown Verified 11/06/24 11:33 Sulfa (Sulfonamide Allergy Unknown Verified 11/06/24 11:33 Antibiotics) [facility] Social History Social History Alcohol intake: never Advance Directives: Yes Advance Directives Information Provided: Yes Advance Directives on File: No Physical Exam 2 Vital Signs: Vital Signs: Last Vital Signs Temp 98.4 F 11/06/24 13:51 Pulse 67 11/06/24 16:00 Resp 13 11/06/24 16:00 BP 145/43 H 11/06/24 16:00 Pulse Ox 99 11/06/24 16:00 O2 Del Method Room Air 11/06/24 16:00 BMI result Body Mass Index 44.4 Exam: General: Awake, alert in no distress, Head: Normocephalic, atraumatic EENT: PERRL, Lids normal, sclera normal, conjunctiva normal, nose normal , ears normal, throat without erythema or exudates Neck: Supple, no adenopathy Lung: breath sounds symmetric, no wheezing, rales or rhonchi Chest: symmetric movement, nontender Heart: regular rate and rhythm, normal S1, S2 no murmurs or rubs Abdomen: soft, obese, non-tender, nondistended, normal bowel sounds Back: no vertebral tenderness, no CVAT Extremities: no deformities, moves all extremities symmetrically Neuro: Awake, alert, oriented, normal speech, cranial nerves intact, moves all extremities symmetrically Psych: Pleasant, cooperative Medical Decision Making Medical Decision Making MDM Narrative: 78 year female with a past medical history of HTN, bipolar disorder, CKD stage 3, anxiety, hypothyroidism, 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 Patient states she has noticed dyspnea on exertion for proximally 2 days. Yesterday when she was walking with her daughter she had to stop frequently. Apparently when she was at physical therapy she was also noted to have dyspnea on exertion with a low O2 saturation. She followed up with her PCP today and when she walked into the office her O2 saturation was 66% on room air. Paramedics state that her O2 saturation on room air was 89%. The office reported that the patient had a low heart rate of 40 40 beats per minute.. Patient states she has had shortness of breath in the past and has had to use inhalers. She does not wear oxygen at home. She denied orthopnea or paroxysmal nocturnal dyspnea. She denied increased swelling or pain in her lower extremities. The patient is on warfarin for DVTs and she has been compliant with his medication. She denied fever, chills, cough, shortness of breath at rest, nausea, vomiting, diarrhea. The patient denied dysuria but states he has urinary frequency case she has been drinking more water. Physical examination was unremarkable. Differential diagnosis: ?Includes but is not limited to congestive heart failure, pulmonary embolism, myocardial infarction, myocardial ischemia, arrhythmia, anemia, electrolyte abnormalities Course: 12:13 I ordered the following: CBC, CMP, lactic acid, lipase, magnesium, PT/INR, PTT, troponin, TSH with reflex T4, VBG, urinalysis, blood cultures x2, COVID-19, influenza, RSV, CT pulmonary angiogram PE protocol patient. Patient will be placed on a cardiac and O2 saturation monitor. Twelve EKG revealed no ST segment elevation or depression with Q-wave in 3 and inverted T-wave in 3 which is old. 13:07 My independent interpretation patient's laboratory evaluation is as follows: WBC was normal 6500. Chronic normocytic anemia with an H&H of 11.3 and 35.5. Elevated BUN 21 with a normal creatinine. PT and INR were therapeutic at 26.3 and 2.3. PT elevated 36.7. LFTs were normal. BNP was normal 47. Venous pH was normal at 7.39 with a an elevated pCO2 of 49. High sensitive troponin I was detectable but not elevated at 10.4. Repeat due at 14:15 hours. 15:46 Repeat 2 hour troponin was flat at 9.9. The patient's right antecubital fossa IV infiltrated during injection for PE study. The patient is difficult to get IV access and, therefore I will change her study to a ventilation perfusion scan to evaluate for possible PE. I will obtain a CT scan without IV contrast to further evaluate her lungs. since we can use a smaller peripheral IV for this study. 18:07 We are unable to establish an IV in his patient's after muscle attempts by nursing and ultrasound-guided IV. Patient's D-dimer was 236 which is low based on an upper limit age adjusted D-dimer of 770 mcg/L. CT of the chest did not reveal any clear etiology for the patient's dyspnea on exertion and hypoxia. Patient was walked here in the emergency department with an O2 saturation monitoring O2 saturation never dropped below 94%. At this time I do not have a clear etiology for the patient's documented. Will discuss admission with the covering hospitalist. 18:47 I did discuss this patient's presentation over tiger text with the covering hospitalist, Dr. Herbert Weinberg and the patient will be admitted to the hospitalist service for further treatment. Admission/Observation Consideration of admission/observation: Escalation of care including admission/observation considered (Yes) Consult Healthcare Provider Management of the patient was discussed with: Hospitalist Lab Data MDM Lab Attestation statement: I reviewed the patient's lab results. 11/06/24 12:13 11/06/24 12:13 Labs: Lab Results 11/06/24 11/06/24 11/06/24 Range/Units 12:13 12:23 12:58 WBC 6.5 (4.8-10.8) X10*3/uL RBC 3.95 L (4.20-5.50) X10*6/uL Hgb 11.3 L (12.0-16.0) g/dl Hct 35.5 L (37.0-47.0) % MCV 89.9 (80.0-98.0) fL MCH 28.6 (27.0-33.0) pg MCHC 31.8 (31.0-35.0) g/dl RDW 13.4 (11.0-16.0) % Plt Count 223 (160-400) X10*3/uL MPV 9.6 (9.4-12.3) fL Immature Gran % (Auto) 0.3 (0.0-0.4) % Neut % (Auto) 57.4 (45-73) % Lymph % (Auto) 29.6 (20-40) % [place] % (Auto) 9.0 (2-11) % Eos % (Auto) 2.8 (0-4) % Baso % (Auto) 0.9 (0-2) % Lymph # (Auto) 1.9 (1.2-4.9) X10*3/uL [place] # (Auto) 0.6 (0.1-1.2) X10*3/uL Eos # (Auto) 0.2 (0.0-0.4) X10*3/uL Baso # (Auto) 0.1 (0.0-0.2) X10*3/uL Abs Immat Gran (auto) 0.02 (0.00-0.03) X10*3/uL Absolute Neuts (auto) 3.7 (2.0-8.3) x10*3/uL Absolute Nucleated RBC 0.000 (0.0-0.012) X10*3/uL Nucleated RBC % (auto) 0.0 (0.0-0.2) /100WBC PT 26.3 H (10.9-12.4) SEC INR 2.3 H (0.9-1.1) APTT 36.7 H (26.7-34.1) SEC D-Dimer High Sensitivty 236 NG/ML VBG pH 7.39 (7.32-7.43) VBG pCO2 49 mmHg VBG pO2 40 mmHg VBG HCO3 30 H (22-26) mmol/L VBG O2 Saturation 66.0 % VBG Base Excess 4.6 mmol/L Sodium 140 (135-145) mmol/L Potassium 4.5 (3.3-5.1) mmol/L Chloride 105 (96-108) mmol/L Carbon Dioxide 27 (22-29) mmol/L Anion Gap 13 (12-20) BUN 21 H (9-16) mg/dL Creatinine 1.09 (0.5-1.4) mg/dL Estim Creat Clear Calc 54.4 Estimated GFR 49 Random Glucose 100 (60-115) mg/dL Lactic Acid 0.9 (0.5-2.0) mmol/L Calcium 9.6 D (8.4-10.2) mg/dL Magnesium 2.0 (1.6-2.6) mg/dL Total Bilirubin 0.5 (0.0-1.0) mg/dL AST 26 (5-31) U/L ALT 13 (0-31) U/L Alkaline Phosphatase 80 (39-117) U/L Troponin I High Sens 10.4 (<3.5-17.0) ng/L B-Natriuretic Peptide 47 (<100) pg/mL Total Protein 7.1 (6.5-8.0) g/dL Albumin 4.4 (3.5-5.0) g/dL Lipase 30 (8-78) U/L TSH 5.18 H (0.32-4.0) uIU/mL Free T4 0.92 (0.71-1.85) ng/dL Urine Color Urine Appearance Urine pH (5.0-9.0) Ur Specific [place] (1.005-1.025) Urine Protein (Neg-Trace) mg/dL Urine Glucose (UA) (Negative) mg/dL Urine Ketones (Negative) mg/dL Urine Blood (Negative) Urine Nitrite (Negative) Ur Leukocyte Esterase (Negative) Influenza Type A (PCR) NEGATIVE (Negative) Influenza Type B (PCR) NEGATIVE (Negative) RSV RNA Qual (PCR) NEGATIVE (Negative) SARS-CoV-2 RNA (RT-PCR) NEGATIVE (Negative) 11/06/24 11/06/24 Range/Units 13:56 14:33 WBC (4.8-10.8) X10*3/uL RBC (4.20-5.50) X10*6/uL Hgb (12.0-16.0) g/dl Hct (37.0-47.0) % MCV (80.0-98.0) fL MCH (27.0-33.0) pg MCHC (31.0-35.0) g/dl RDW (11.0-16.0) % Plt Count (160-400) X10*3/uL MPV (9.4-12.3) fL Immature Gran % (Auto) (0.0-0.4) % Neut % (Auto) (45-73) % Lymph % (Auto) (20-40) % [place] % (Auto) (2-11) % Eos % (Auto) (0-4) % Baso % (Auto) (0-2) % Lymph # (Auto) (1.2-4.9) X10*3/uL [place] # (Auto) (0.1-1.2) X10*3/uL Eos # (Auto) (0.0-0.4) X10*3/uL Baso # (Auto) (0.0-0.2) X10*3/uL Abs Immat Gran (auto) (0.00-0.03) X10*3/uL Absolute Neuts (auto) (2.0-8.3) x10*3/uL Absolute Nucleated RBC (0.0-0.012) X10*3/uL Nucleated RBC % (auto) (0.0-0.2) /100WBC PT (10.9-12.4) SEC INR (0.9-1.1) APTT (26.7-34.1) SEC D-Dimer High Sensitivty NG/ML VBG pH (7.32-7.43) VBG pCO2 mmHg VBG pO2 mmHg VBG HCO3 (22-26) mmol/L VBG O2 Saturation % VBG Base Excess mmol/L Sodium (135-145) mmol/L Potassium (3.3-5.1) mmol/L Chloride (96-108) mmol/L Carbon Dioxide (22-29) mmol/L Anion Gap (12-20) BUN (9-16) mg/dL Creatinine (0.5-1.4) mg/dL Estim Creat Clear Calc Estimated GFR Random Glucose (60-115) mg/dL Lactic Acid (0.5-2.0) mmol/L Calcium (8.4-10.2) mg/dL Magnesium (1.6-2.6) mg/dL Total Bilirubin (0.0-1.0) mg/dL AST (5-31) U/L ALT (0-31) U/L Alkaline Phosphatase (39-117) U/L Troponin I High Sens 9.9 (<3.5-17.0) ng/L B-Natriuretic Peptide (<100) pg/mL Total Protein (6.5-8.0) g/dL Albumin (3.5-5.0) g/dL Lipase (8-78) U/L TSH (0.32-4.0) uIU/mL Free T4 (0.71-1.85) ng/dL Urine Color Yellow Urine Appearance Clear Urine pH 8.0 (5.0-9.0) Ur Specific [place] 1.010 (1.005-1.025) Urine Protein Negative (Neg-Trace) mg/dL Urine Glucose (UA) Negative (Negative) mg/dL Urine Ketones Negative (Negative) mg/dL Urine Blood Negative (Negative) Urine Nitrite Negative (Negative) Ur Leukocyte Esterase Negative (Negative) Influenza Type A (PCR) (Negative) Influenza Type B (PCR) (Negative) RSV RNA Qual (PCR) (Negative) SARS-CoV-2 RNA (RT-PCR) (Negative) Independent Interpretation I performed an independent interpretation of an: EKG Interpretation: My independent interpretation patient's 12 EKG done on 11/06/2024 at 11:43 hours is as follows: Normal sinus rhythm rate of 66, normal WA interval, QRS duration and QTC interval, no ST segment elevation, no ST segment depression, inverted T- wave in lead 3, Q-wave in lead 3, compared to EKG dated 01/13/2024 at 14:32 hours inverted T-wave and Q-waves in lead 3 are old. Radiology Impression Discussion of test interpretation with radiology: I have reviewed the radiologist's reading. Radiologist Impression: CT chest wo IV con IMPRESSION: No acute pulmonary disease. Fleischner guidelines were followed. Electronically signed by: Venancio Quinones MD 11/06/2024 05:11 PM EDT Independent Historian Clinical information obtained from an independent historian. History obtained from or confirmed by: Other (Daughter) Chronic Conditions Patient?s care impacted by: Hypertension and Other (Hyperlipidemia, asthma) Discharge Plan Discharge Patient Disposition: Admitted As Inpatient Print Language: Italian
[2024-11-06 11:27] VITALS: BP 136/47; BP 150/50; PULSE 72; PULSE 74; RESP 20; TEMP 36.8; O2SAT 98; BMI 44.4
--- NOTE | 2024-11-06 11:35 | ECG_ITS ---
Test Reason : sob Blood Pressure : */* mmHG Vent. Rate : 66 BPM Atrial Rate : 66 BPM P-R Int : 170 ms QRS Dur : 88 ms QT Int : 392 ms P-R-T Axes : 25 4 16 degrees QTcB Int : 410 ms Normal sinus rhythm Minimal voltage criteria for LVH, may be normal variant ( R in aVL ) Inferior infarct (cited on or before 13-Jan-2024) Cannot rule out Anterior infarct (cited on or before 13-Jan-2024) Abnormal ECG When compared with ECG of 13-Jan-2024 14:32, Vent. rate has decreased by 33 bpm Referred By: Bacilio Cobos Electronically Signed By: MAUREEN OCHOA
--- NOTE | 2024-11-06 11:52 | PC.NURSE ---
Dr. Cobos at bedside performing bedside ultrasound of heart & lungs. Orders entered, EKG obtained. Plan to insert IV access & collect bloodwork. Stable at this time.
[2024-11-06 12:23] LABS: MANUAL DIFF FLAG NO
[2024-11-06 12:26] LABS: Hematocrit 35.5 % (37.0-47.0); Hemoglobin 11.3 g/dl (12.0-16.0); Imm Gran Abs Auto 0.02 X10*3/uL (0.00-0.03); Imm Gran Pct Auto 0.3 % (0.0-0.4); Lymphocytes Absolute Auto 1.9 X10*3/uL (1.2-4.9); Mean Corpuscular HGB Conc 31.8 g/dl (31.0-35.0); Mean Corpuscular Hemoglobin 28.6 pg (27.0-33.0); Mean Corpuscular Volume 89.9 fL (80.0-98.0); NRBC Abs Auto 0.000 X10*3/uL (0.0-0.012); NRBC Pct Auto 0.0 /100WBC (0.0-0.2); Platelet Count 223 X10*3/uL (160-400); Red Blood Count 3.95 X10*6/uL (4.20-5.50); White Blood Count 6.5 X10*3/uL (4.8-10.8)
[2024-11-06 12:27] LABS: Venous Blood Gas Refer to POC result
[2024-11-06 12:28] LABS: VBG HCO3 30 mmol/L (22-26); VBG O2 % Saturation 66.0 %
[2024-11-06 12:30] LABS: INTERNATIONAL NORM RATIO 2.3 (0.9-1.1); Prothrombin Time 26.3 SEC (10.9-12.4)
[2024-11-06 12:33] LABS: Partial Thromboplastin Time 36.7 SEC (26.7-34.1)
[2024-11-06 12:44] LABS: B Type Natriuretic Peptide 47 pg/mL (<100)
[2024-11-06 12:46] LABS: Alanine Aminotransferase 13 U/L (0-31); Albumin Level 4.4 g/dL (3.5-5.0); Alkaline Phosphatase 80 U/L (39-117); Anion Gap 13 (12-20); Aspartate Amino Transferase 26 U/L (5-31); Blood Urea Nitrogen 21 mg/dL (9-16); Calcium 9.6 mg/dL (8.4-10.2); Carbon Dioxide 27 mmol/L (22-29); Chloride 105 mmol/L (96-108); Creatinine Clr Calc Pharmacy 54.4; Estimated Glomerular Filt Rate 49; Lipase 30 U/L (8-78); Magnesium 2.0 mg/dL (1.6-2.6); Potassium 4.5 mmol/L (3.3-5.1); Sodium 140 mmol/L (135-145); Total Protein 7.1 g/dL (6.5-8.0); Troponin-I High Sensitivity 10.4 ng/L (<3.5-17.0)
--- NOTE | 2024-11-06 12:59 | MHC.EDTECH ---
Per provider, wait to obtain 2nd blood culture with trop due at 14:15.
[2024-11-06 13:40] LABS: Resp Syncy Virus RNA Qual PCR NEGATIVE (Negative); SARS COV2 PCR INHOUSE NEGATIVE (Negative)
[2024-11-06 13:44] LABS: Free T4 (Free Thyroxine) 0.92 ng/dL (0.71-1.85)
[2024-11-06 13:51] VITALS: BP 128/40; PULSE 64; RESP 13; TEMP 36.9; O2SAT 94
[2024-11-06 14:07] LABS: Appearance Urine Clear; Glucose Urine UA Negative (Negative); PH 8.0 (5.0-9.0); Specific Gravity - Urine 1.010 (1.005-1.025)
--- OUTSIDE RECORDS SUMMARY | 2024-11-06 14:45 | XMS_ITS | Clinical Summary ---
Author Organization [facility] Address [address] [place] [address] Care Team Providers Care Anthropological Linguist Name Role Phone Unavailable Primary Care Provider [...] Vaccine (1 - 2023-2 5 season) 2023 Depression Screening 04/04/2024 Influenza Vaccine (#1) 2024 HIB Vaccines Aged [...]
--- OUTSIDE RECORDS SUMMARY | 2024-11-06 14:45 | XMS_ITS | Patient Health Record ---
[facility] Address [address] [place] [address] Care Team Providers Care Head Scorer Name Role Phone Julia Gordon Unavailable [phone] Allergies Allergen (clinical drug ingredient) Drug/Non Drug [...] W/U Status Risk Notes Problem Plantar wart (49419573) Plantar wart (B07.0) Active confirmed Problem Gouty arthritis of left foot ([id number] 103) Gouty arthritis of left foot (M10.9) Active confirmed Plan Of Treatment Pending Test Test Name Order Date *Uric Acid, Serum 04/01/2021 ESR 04/01/2021 X ray : Foot, left 3V 04/01/2021 Insurance Providers Payer Name Payer Address Payer Phone Subscriber Number Group Number Insured Name Patient Relationship to Insured Coverage Start Date Coverage End Date [facility] [employer] Claims [address] [place] [phone] [id number] Vale Chávez Self - patient is the insured Medical (General) History Medical History History ICD Code Back,Hip,and Knee pain Depression High blood pressure Joint implants/screws Glaucoma Stroke foot pain Surgical History Surgery Date(Month/Year) 2 knee surgery 2 total knee replacement Wrist Surgery - bar placed inside wrist Hospitalization History Reason Date(Month/Year) Fell of knee- pt had [facility] for 6 w eeks 05/2020
[2024-11-06 15:06] LABS: Troponin-I High Sensitivity 9.9 ng/L (<3.5-17.0)
[2024-11-06 16:00] VITALS: BP 145/43; PULSE 67; RESP 13; O2SAT 99
[2024-11-06 16:13] LABS: D Dimer High Sensitivity 236 NG/ML
--- NOTE | 2024-11-06 16:18 | PC.NURSE ---
Patient is a very difficult IV stick, including with ultrasound attempts by Dr. Ashley & Dr. Cobos. Dr. Cobos to cancel VQ scan, plan for CT scan without contrast & Xray. Previously obtained IV access infiltrated during CT scan with contrast and was removed. Multiple unsuccessful attempts by this RN, Cecilia RN, Deena RN, Dr. Ashley, & Dr. Cobos. Care ongoing by this RN.
--- NOTE | 2024-11-06 17:40 | MHC.EDTECH ---
Ambulation trial performed with pt. Pt began with her spo2 at 98%. while walking, lowest SPO2 was 94%. Pt was visibly SOB and needed to pause a couple of times to catch her breath. Pts sp02 was at 100% back in bed with deep breathing. RN and provider aware.
--- NOTE | 2024-11-06 19:13 | PM.IMHP ---
History of Present Illness Date of Service: 11/06/24 Attending physician on admission: Jose Guallpa Chief Complaint: Dyspnea Patient is a 78 year female with past medical history hypertension, hyperlipidemia, CVA (no obvious deficits), osteoarthritis, hypothyroidism, DVT on Coumadin, B knee replacement, history of falls, morbid obesity (BMI 44), seasonal allergies, depression/anxiety, iron deficiency anemia was sent to the emergency room by ambulance from her primary care doctor's office for worsening shortness of breath especially with exertion and noted POX 66%. Also reported that pt's HR was in the 40's. When EMS arrived, POX 89%. Patient states she has been having increasing shortness of breath over the last week. Patient currently lives alone and ambulates with walker and does not use oxygen home. Patient does have a rescue inhaler but has not been dependent on this medication for breathing issues. Patient denies any wheezing or productive cough. Workup in the emergency department included CT scan of the chest which was negative for any acute findings to include PNA, PLeural effusion or pulmonary edema. Troponin negative and BNP 47. ECG neg for ischemic changes and no evidence of bradycardia in the ED. D-dimer was normal for patient's age. Patient does not have any significant anemia. VBG reassuring 7.39, 49, 40, 30. INR currently 2.3. Subclinical hypothyroidism noted with patient's labs done in the ED. patient normally on 75 mcg of levothyroxine daily and patient does take at least 30 minutes before eating. Pt is morbidly obese and indicates that her weight has been the same for some time. Pt does not particiapte in any senior programs or exercises due to HX of BKR's. Patient currently denies any chest pain, shortness of breath at rest, abdominal pain or nausea and vomiting. Patient denies any problems with productive cough, fever chills or recent exposure to anyone ill. Patient has not had any recent travel especially by plane. Patient reports a fall approximately 3 weeks prior after having a new shower put in her home and she was seen at [facility] because she hit her head and is on Coumadin. Patient was evaluated and discharged back home in stable condition. Patient denies any further falls since the initial fall 3 weeks prior. Review of Systems Review of Systems: Patient currently denies any chest pain, shortness of breath at rest, abdominal pain or nausea and vomiting. Patient denies any problems with productive cough, fever chills or recent exposure to anyone ill. Patient has not had any recent travel especially by plane. [facility] Medical History (Updated 11/06/24 @ 19:58 by MARY Knight-KAYE) DVT (deep venous thrombosis) Morbid obesity Seasonal allergies Fall Osteoarthritis CVA (cerebral vascular accident) Hypothyroidism Hyperlipidemia Hypertension Cognitive capacity: Alert and orientated x3 Functional capacity: uses cane/walker Patient : No Surgical History (Updated 11/06/24 @ 19:58 by MARY Knight-KAYE) H/O abdominal surgery History of left knee replacement Status post right knee replacement Social History (Updated 11/06/24 @ 19:59 by MARY Knight-KAYE) Alcohol intake: never Patient Tobacco Use Status: Former Tobacco user Tobacco use type: Cigarette Years Smoked: 2 years [age] YOA Advance Directives: Yes Advance Directives Information Provided: Yes Advance Directives on File: No Patient : No Ebola Risk: Travel/Contact With Anyone From Affected Area/s: No Has Patient Experienced Ebola Symptoms: No Meds Allergies Allergy/AdvReac Type Severity Reaction Status Date / Time doxycycline Allergy Unknown Verified 11/06/24 11:33 latex Allergy Unknown Verified 11/06/24 11:33 rosuvastatin Allergy Unknown Verified 11/06/24 11:33 Sulfa (Sulfonamide Allergy Unknown Verified 11/06/24 11:33 Antibiotics) Home Medications ?Medication ?Instructions ?Recorded ?Confirmed ?Last Taken ?Type albuterol sulfate 90 mcg/actuation 2 puff inhalation Q6H PRN wheezing 11/06/24 11/06/24 Unknown History aerosol inhaler budesonide-formoterol HFA 80 2 puff inhalation BID 11/06/24 11/06/24 11/06/24 History mcg-4.5 mcg/actuation aerosol inhaler cetirizine 5 mg tablet 10 mg PO DAILY PRN allergies 11/06/24 11/06/24 Unknown History escitalopram oxalate 20 mg tablet 20 mg PO DAILY 11/06/24 11/06/24 11/06/24 History ferrous sulfate 324 mg (65 mg 324 mg PO DAILY 11/06/24 11/06/24 11/06/24 History iron) tablet,delayed release lamotrigine 50 mg disintegrating 50 mg PO BID 11/06/24 11/06/24 11/06/24 History tablet levothyroxine 75 mcg tablet 75 mcg PO DAILY 11/06/24 11/06/24 11/06/24 History lisinopril 10 mg tablet 10 mg PO DAILY 11/06/24 11/06/24 11/06/24 History rosuvastatin 20 mg tablet 20 mg PO DAILY 11/06/24 11/06/24 11/06/24 History warfarin 1 mg tablet 0.5 mg PO SUWETHFR@1800 11/06/24 11/06/24 11/04/24 History warfarin 1 mg tablet 1 mg PO MOTUSA@1800 11/06/24 11/06/24 11/05/24 History Physical Exam Vital Signs and Narrative: Vital Signs: Last Vital Signs Temp 98.4 F 11/06/24 13:51 Pulse 67 11/06/24 16:00 Resp 13 11/06/24 16:00 BP 145/43 H 11/06/24 16:00 Pulse Ox 99 11/06/24 16:00 O2 Del Method Room Air 11/06/24 16:00 BMI result Body Mass Index 44.4 Alert and orientated X3, able to provide some medical hx unable to recall dates well. Neuro: CN II-X11 intact, no deficits, visual acuity intact EYES: PERRLA, EOM intact, sclera nonicteric, conjunctiva pink ENT: hearing intact, no issues with swallowing, uvula midline, lips moist, nares patent no epistaxis Cardiac: S1 S2 RRR, no murmur, no JVD, no edema in Lower ext Pulmonary: lungs clear to auscultation B Abdominal: BS active in all 4 quadrants, no guarding, tenderness, rebounding, obese MSK: strength 4/5 upper and lower extremities : no CVA tenderness no bladder distension Extremities: no edema in lower extremities, PT and DP pulses palpable +2, skin color changes noted BLE's Psych: mood stable, judgement and insight good SKin: intact Results Labs 11/06/24 12:13 11/06/24 12:13 Labs: Laboratory Results - last 24 hr 11/06/24 11/06/24 11/06/24 12:13 12:23 12:58 MCV 89.9 MCH 28.6 MCHC 31.8 RDW 13.4 Plt Count 223 MPV 9.6 Immature Gran % (Auto) 0.3 Neut % (Auto) 57.4 Lymph % (Auto) 29.6 [place] % (Auto) 9.0 Eos % (Auto) 2.8 Baso % (Auto) 0.9 Lymph # (Auto) 1.9 [place] # (Auto) 0.6 Eos # (Auto) 0.2 Baso # (Auto) 0.1 Abs Immat Gran (auto) 0.02 Absolute Neuts (auto) 3.7 Absolute Nucleated RBC 0.000 Nucleated RBC % (auto) 0.0 PT 26.3 H INR 2.3 H APTT 36.7 H D-Dimer High Sensitivty 236 VBG pH 7.39 VBG pCO2 49 VBG pO2 40 VBG HCO3 30 H VBG O2 Saturation 66.0 VBG Base Excess 4.6 Anion Gap 13 Estim Creat Clear Calc 54.4 Estimated GFR 49 Random Glucose 100 Lactic Acid 0.9 Calcium 9.6 D Magnesium 2.0 Total Bilirubin 0.5 AST 26 ALT 13 Alkaline Phosphatase 80 B-Natriuretic Peptide 47 Total Protein 7.1 Albumin 4.4 Lipase 30 TSH 5.18 H Free T4 0.92 Urine Color Urine Appearance Urine pH Ur Specific [place] Urine Protein Urine Glucose (UA) Urine Ketones Urine Blood Urine Nitrite Ur Leukocyte Esterase Influenza Type A (PCR) NEGATIVE Influenza Type B (PCR) NEGATIVE RSV RNA Qual (PCR) NEGATIVE SARS-CoV-2 RNA (RT-PCR) NEGATIVE 11/06/24 13:56 MCV MCH MCHC RDW Plt Count MPV Immature Gran % (Auto) Neut % (Auto) Lymph % (Auto) [place] % (Auto) Eos % (Auto) Baso % (Auto) Lymph # (Auto) [place] # (Auto) Eos # (Auto) Baso # (Auto) Abs Immat Gran (auto) Absolute Neuts (auto) Absolute Nucleated RBC Nucleated RBC % (auto) PT INR APTT D-Dimer High Sensitivty VBG pH VBG pCO2 VBG pO2 VBG HCO3 VBG O2 Saturation VBG Base Excess Anion Gap Estim Creat Clear Calc Estimated GFR Random Glucose Lactic Acid Calcium Magnesium Total Bilirubin AST ALT Alkaline Phosphatase B-Natriuretic Peptide Total Protein Albumin Lipase TSH Free T4 Urine Color Yellow Urine Appearance Clear Urine pH 8.0 Ur Specific Rosamond 1.010 Urine Protein Negative Urine Glucose (UA) Negative Urine Ketones Negative Urine Blood Negative Urine Nitrite Negative Ur Leukocyte Esterase Negative Influenza Type A (PCR) Influenza Type B (PCR) RSV RNA Qual (PCR) SARS-CoV-2 RNA (RT-PCR) ECG Attestation: I personally reviewed and interpreted this ECG as follows: (Normal sinus rhythm Minimal voltage criteria for LVH, may be normal variant ( R in aVL )) Prior ECG tracings: available for review Imaging Radiologist's Impressions: Impressions Chest CT 11/06/24 16:26 IMPRESSION: No acute pulmonary disease. Fleischner guidelines were followed. Electronically signed by: Venancio Quinones MD 11/06/2024 05:11 PM EDT RP Assessment and Plan (1) MARIE (dyspnea on exertion): Status: Acute Plan Patient is a 78 year female with past medical history hypertension, hyperlipidemia, CVA (no obvious deficits), osteoarthritis, hypothyroidism, DVT on Coumadin, B knee replacement, history of falls, morbid obesity (BMI 44), seasonal allergies, asthma (pt denies COPD, active smoking, smoked at age 19 for 2 years), depression/anxiety, iron deficiency anemia was sent to the emergency room by ambulance from her primary care doctor's office for worsening shortness of breath especially with exertion and low POX 66%. Also reported that pt's HR was in the 40's. EMS noted pt's POX was 89% on RA on arrival. Workup in the ED was inconclusive for any specific finding explaining patient's dyspnea. Patient has not been hypoxic since arrival. Patient being admitted for further workup. Dyspnea on exertion, new onset / HX of asthma Patient currently on room air, monitor via telemetry and continuous pulse ox DDIMER WNL for pt's age CT of the chest negative for any acute findings (done without contrast in ED) VBG 7.39, 49, 40, 30 (bicarb), renal function stable Pulmonary consult placed Incentive spirometer offered Echocardiogram ordered, no hx of CHF, Pulmonary HTN Continue Budesonide, DUONEB prn (pt denies hx of COPD, admits she may have asthma) Morbid obesity with a BMI of 44 Nutritional consult placed Patient's weight may be contributing to her symptoms but patient states her weight is unchanged Patient at one time tried hypnotherapy and lost 14 lb Patient admits to living a very sedentary lifestyle due to bilateral knee replacements and limited mobility Subclinical Hypothyroidism already on levothyroxine TSH 5.12, FT4 WNL Increased Levothyroxine from 75 mcg to 100 mcg daily, 30 mins prior to eating Repeat labs 4-6 weeks with PCP HX of DVT on coumadin INR 2.3, coumadin ordered Daily INR MED REC completed, coumadin ordered HTN Continue lisinopril 10 mg daily Low-salt diet HLD Continue rosuvastatin LFTs stable DVT prophylaxis: coumadin FULL CODE MED REC COMPLETED Quality Stroke Does the patient have a stroke diagnosis?: No Reason for No Anti-thrombotic by Day Two: N/A - Med Ordered VTE Prior VTE?: Yes VTE Risk Level:: Medical - moderate - high VTE Device Contraindication: N/A - Device Ordered VTE Drug Contraindication: N/A - Med Ordered
--- NOTE | 2024-11-06 19:29 | PHA.MEDREC ---
Addendum entered by William Hendrix [facility] 11/07/24 14:22: Pt states she takes warfarin 1mg MWF, and 0.5mg on the other days Original Note: Pharmacy Consult ? Medication Reconciliation Pharmacy has completed the medication reconciliation.
[2024-11-06 20:40] VITALS: BP 145/44; PULSE 70; RESP 20; TEMP 37.1; O2SAT 97
--- NOTE | 2024-11-06 20:58 | PC.NURSE ---
Report given that patient has had multiple attempts for IV access with no success, ED Dr attempted a line in neck unable to obtain. HIREN Hernandez informed of IV status with plan for IR tomorrow
--- NOTE | 2024-11-06 21:07 | PM.EVENT ---
Event Note Date of Service: 11/06/24 Event Note: Patient currently has no IV access. Multiple attempts at IV access has been made by multiple staff members in the ED including ultrasound-guided AV and central line. This repairer typewriter will attempt IV access if time permits. Patient may need intervention with IR for central line in the a.m.. Time Spent With Patient Time: Total time managing care of this patient today ____ minutes.
--- NOTE | 2024-11-06 22:07 | MHC.EDTECH ---
Pt walked to/from bathroom with standby assist, only requiring help to get off the toilet. Pt laying in stretcher, call mann within reach.
[2024-11-06 23:34] VITALS: BP 151/53; PULSE 98; RESP 18; TEMP 37.1; O2SAT 99
[2024-11-07] VITALS (8 sets, daily range): BP systolic 130–138; BP diastolic 41–64; PULSE 73–99; RESP 14–20; TEMP 36.3–37.1; O2SAT 90–100; BMI 43.9
[2024-11-07 05:56] LABS: MANUAL DIFF FLAG NO
[2024-11-07 06:04] LABS: INTERNATIONAL NORM RATIO 2.1 (0.9-1.1); Prothrombin Time 23.8 SEC (10.9-12.4)
[2024-11-07 06:08] LABS: Hematocrit 36.3 % (37.0-47.0); Hemoglobin 11.5 g/dl (12.0-16.0); Imm Gran Abs Auto 0.02 X10*3/uL (0.00-0.03); Imm Gran Pct Auto 0.3 % (0.0-0.4); Lymphocytes Absolute Auto 1.7 X10*3/uL (1.2-4.9); Mean Corpuscular HGB Conc 31.7 g/dl (31.0-35.0); Mean Corpuscular Hemoglobin 29.0 pg (27.0-33.0); Mean Corpuscular Volume 91.4 fL (80.0-98.0); NRBC Abs Auto 0.000 X10*3/uL (0.0-0.012); NRBC Pct Auto 0.0 /100WBC (0.0-0.2); Platelet Count 219 X10*3/uL (160-400); Red Blood Count 3.97 X10*6/uL (4.20-5.50); White Blood Count 6.3 X10*3/uL (4.8-10.8)
[2024-11-07 06:24] LABS: Anion Gap 13 (12-20); Blood Urea Nitrogen 18 mg/dL (9-16); Calcium 9.4 mg/dL (8.4-10.2); Carbon Dioxide 26 mmol/L (22-29); Chloride 107 mmol/L (96-108); Creatinine Clr Calc Pharmacy 62.4; Estimated Glomerular Filt Rate 57; Potassium 4.5 mmol/L (3.3-5.1); Sodium 141 mmol/L (135-145)
[2024-11-07] MEDS: Fluticasone/Vilanterol 100/25 BLST.W.DEV 1 PUFF INHALE (08:24)
[2024-11-07] MEDS: Ferrous Sulfate 324 MG TABLET.DR PO (08:38)
--- NOTE | 2024-11-07 11:31 | MHC.CM.PN ---
Addendum entered by Renate Nunez 11/07/24 11:39: Pt.'s PCP is Dr. Debbie Diallo at [facility] primary care Original Note: IMM 11/07/24, Pt. lives alone, she has home delivered meals, for DME, she uses a walker and a cane. HCP is her dtr Donna, copy requested. Transport home at DC will be by family. DCP: home, self care or with services. CM to follow for DC needs.
--- NOTE | 2024-11-07 12:53 | PM.CNPUL ---
History of Present Illness History of Present Illness Consult date: 11/07/24 Chief complaint: Dyspnea on exertion Narrative: 78-year-old lady essentially nonsmoker with underlying DVT on Coumadin, hypertension, morbid obesity admitted with worsening dyspnea over several weeks duration with CT chest showing essentially clear lungs. Pulmonary evaluation requested for dyspnea on exertion. Review of Systems Constitutional: Constitutional: Denies daytime sleepiness, Denies excessive sweating, Denies fatigue, Denies fever(s), Denies lethargy, Denies malaise, Denies night sweats, Denies snoring and Denies weight loss Eyes: Eyes: Denies blurry vision and Denies itchy eyes ENT: Denies nasal congestion, Denies post nasal drip, Denies sinus pain, Denies sinus pressure and Denies other ( Thrush) Cardiovascular: Cardiovascular: Denies chest pain, Denies pedal edema, Reports dyspnea, Reports dyspnea on exertion, Denies orthopnea and Denies paroxysmal nocturnal dyspnea Respiratory: Respiratory: Denies cough, Denies hemoptysis, Denies excessive phlegm production, Reports dyspnea, Reports dyspnea on exertion, Denies snoring and Denies wheezing Gastrointestinal: Gastrointestinal: Denies abdominal pain and Denies heartburn Musculoskeletal: Musculoskeletal: Denies myalgias, Denies arthralgias and Denies joint swelling Integumentary/Breasts: Skin/Breast: Denies rash Neurologic: Denies memory loss and Denies seizure-like activity Psychiatric: Psychiatric: Denies abnormal sleep pattern, Denies anxiety and Denies memory loss Endocrine: Endocrine: Denies excessive sweating, Denies fatigue and Denies heat intolerance Hematologic/Lymphatic: Hematologic/Lymphatic: Denies easy bruising Allergic/Immunologic: Allergic/Immunologic: Denies itchy eyes, Denies seasonal rhinorrhea and Denies wheezing PMFSH Past Medical History Medical History (Updated 11/06/24 @ 19:58 by MARY Knight-KAYE) DVT (deep venous thrombosis) Morbid obesity Seasonal allergies Fall Osteoarthritis CVA (cerebral vascular accident) Hypothyroidism Hyperlipidemia Hypertension Surgical History Surgical History (Updated 11/06/24 @ 19:58 by MARY Knight-KAYE) H/O abdominal surgery History of left knee replacement Status post right knee replacement Social History Social History (Updated 11/06/24 @ 19:59 by MARY Knight-KAYE) Unable to assess alcohol history related to: Unknown Alcohol intake: never Patient Tobacco Use Status: Former Tobacco user Tobacco use type: Cigarette Years Smoked: 2 years [age] YOA Smoked in Last 30 Days: No Use of substances other than those prescribed or required for medical reasons: Unknown Advance Directives: Yes Advance Directives Information Provided: Yes Advance Directives on File: No Nutrition Risks: No Nutritional Risk Patient : No service: No Travel History Ebola Risk: Travel/Contact With Anyone From Affected Area/s: No Has Patient Experienced Ebola Symptoms: No Meds Allergies Allergy/AdvReac Type Severity Reaction Status Date / Time doxycycline Allergy Unknown Verified 11/06/24 11:33 latex Allergy Unknown Verified 11/06/24 11:33 rosuvastatin Allergy Unknown Verified 11/06/24 11:33 Sulfa (Sulfonamide Allergy Unknown Verified 11/06/24 11:33 Antibiotics) Active Medications: Current Medications Acetaminophen (Acetaminophen 325 Mg Tablet) 650 mg PO Q6H PRN PRN Reason: Pain, Mild 1-3,fever,headache Albuterol/Ipratropium (Albuterol/Iprat 2.5/0.5mg 3 Ml Ampul.Neb) 3 ml INHALE Q4H PRN PRN Reason: Shortness of Breath/Wheezing Atorvastatin Calcium (Atorvastatin Calcium 80 Mg Tablet) 80 mg PO DAILY [facility] Last Admin: 11/07/24 08:38 Dose: 80 mg Calcium Carbonate (Calcium Carbonate 750 Mg Tab.Chew) 750 mg PO Q4H PRN PRN Reason: Heartburn Escitalopram Oxalate (Escitalopram Oxalate 20 Mg Tablet) 20 mg PO DAILY [facility] Last Admin: 11/07/24 08:38 Dose: 20 mg Ferrous Sulfate (Ferrous Sulfate 324 Mg Tablet.Dr) 324 mg PO DAILY [facility] Last Admin: 11/07/24 08:38 Dose: 324 mg Fluticasone/Vilanterol (Fluticasone/Vilanterol 100/25 Blst.W.Dev) 1 puff INHALE RDAILY [facility] Last Admin: 11/07/24 08:24 Dose: 1 puff Lamotrigine (Lamotrigine 25 Mg Tablet) 50 mg PO BID [facility] Last Admin: 11/07/24 08:38 Dose: 50 mg Levothyroxine Sodium (Levothyroxine Sodium 100 Mcg Tablet) 100 mcg PO DAILY@0600 [facility] Last Admin: 11/07/24 06:00 Dose: 100 mcg Lisinopril (Lisinopril 10 Mg Tablet) 10 mg PO DAILY [facility]; Protocol Last Admin: 11/07/24 08:38 Dose: 10 mg Magnesium Hydroxide (Milk Of Magnesia 30 Ml Oral.Susp) 30 ml PO DAILY PRN PRN Reason: Constipation Melatonin (Melatonin 3 Mg Tablet) 6 mg PO BEDTIME PRN PRN Reason: Insomnia Ondansetron HCl (Ondansetron Hcl 4 Mg/2 Ml Vial) 4 mg IVPUSH Q8H PRN PRN Reason: Nausea and Vomiting Polyethylene Glycol (Polyethylene Glycol 3350 17 Gm Powd.Pack) 17 gm PO DAILY PRN PRN Reason: Constipation Senna (Sennosides 8.6 Mg Tablet) 17.2 mg PO BEDTIME [facility] Last Admin: 11/06/24 20:44 Dose: 17.2 mg Sodium Chloride (0.9 % Sodium Chloride Flush 3 Ml Syringe) 3 ml IVFLUSH QSHIFT [facility] Last Admin: 11/07/24 08:38 Dose: Not Given Warfarin Sodium (Warfarin Sodium 1 Mg Tablet) 1 mg PO MOTUSA@1800 [facility] Warfarin Sodium (Warfarin Sodium 0.5 Mg Halftab) 0.5 mg PO SUWETHFR@1800 [facility] Home Medications ?Medication ?Instructions ?Recorded ?Confirmed ?Last Taken ?Type albuterol sulfate 90 mcg/actuation 2 puff inhalation Q6H PRN wheezing 11/06/24 11/06/24 Unknown History aerosol inhaler budesonide-formoterol HFA 80 2 puff inhalation BID 11/06/24 11/06/24 11/06/24 History mcg-4.5 mcg/actuation aerosol inhaler cetirizine 5 mg tablet 10 mg PO DAILY PRN allergies 11/06/24 11/06/24 Unknown History escitalopram oxalate 20 mg tablet 20 mg PO DAILY 11/06/24 11/06/24 11/06/24 History ferrous sulfate 324 mg (65 mg 324 mg PO DAILY 11/06/24 11/06/24 11/06/24 History iron) tablet,delayed release lamotrigine 50 mg disintegrating 50 mg PO BID 11/06/24 11/06/24 11/06/24 History tablet levothyroxine 75 mcg tablet 75 mcg PO DAILY 11/06/24 11/06/24 11/06/24 History lisinopril 10 mg tablet 10 mg PO DAILY 11/06/24 11/06/24 11/06/24 History rosuvastatin 20 mg tablet 20 mg PO DAILY 11/06/24 11/06/24 11/06/24 History warfarin 1 mg tablet 0.5 mg PO SUWETHFR@1800 11/06/24 11/06/24 11/04/24 History warfarin 1 mg tablet 1 mg PO MOTUSA@1800 11/06/24 11/06/24 11/05/24 History Physical Exam Vital Signs: Vital Signs: Last Vital Signs Temp 97.9 F 11/07/24 11:59 Pulse 75 11/07/24 11:59 Resp 19 11/07/24 11:59 BP 133/47 L 11/07/24 11:59 Pulse Ox 98 11/07/24 11:59 O2 Del Method Room Air 11/07/24 11:59 BMI result Body Mass Index 44.4 Const: General: no acute distress and alert Nutritional Appearance: not obese Orientation/consciousness: Other orientation findings ( oriented) HEENT: Head: Yes atraumatic Eyes: General: appearance normal, both eyes and all related structures Sclerae: sclerae normal EOM: EOMs intact bilaterally Neck: Neck: Yes supple Lymphatic: no lymphadenopathy noted Resp: Effort & Inspection: normal respiratory effort and no use of accessory muscles Auscultation: clear to auscultation bilaterally Cardio: Rate: regular rate Rhythm: regular rhythm Heart sounds: no gallops, no murmurs and no rubs Skin: General skin exam: other ( warm) Extrem: General: No clubbing, No cyanosis and No edema Results Laboratory Findings 11/07/24 04:59 11/07/24 04:59 ABG, PT/INR, D-dimer: PT/INR, D-dimer PT 23.8 SEC (10.9-12.4) H 11/07/24 04:59 INR 2.1 (0.9-1.1) H 11/07/24 04:59 Abnormal lab findings: Abnormal Labs 11/06/24 11/06/24 11/07/24 12:13 12:23 04:59 RBC 3.95 L 3.97 L Hgb 11.3 L 11.5 L Hct 35.5 L 36.3 L PT 26.3 H 23.8 H INR 2.3 H 2.1 H APTT 36.7 H VBG HCO3 30 H BUN 21 H 18 H TSH 5.18 H Assessment and Plan (1) MARIE (dyspnea on exertion): Status: Acute Plan Impression: 78-year-old lady admitted with slowly worsening dyspnea, now documented to have room air saturation of 98%, essentially clear CT chest, and therapeutic on Coumadin. Patient does not appear to have a pulmonary related etiology to her underlying dyspnea on exertion. Recommendation: Consider 2D echocardiogram. Procedures Date of Service Date of Service: 11/07/24
--- NOTE | 2024-11-07 17:13 | HO.PM.IMPN ---
Subjective Subjective Date of Service: 11/07/24 Interval History: No acute issues overnight. Feels weak; breathing somewhat improved Review of Systems Denies chest pain Admits to shortness of breath Denies nausea vomiting diarrhea Denies fever chills Physical Exam Vital Signs: Vital Signs: Last Vital Signs Temp 98.7 F 11/07/24 16:00 Pulse 73 11/07/24 16:00 Resp 14 11/07/24 16:00 BP 130/64 11/07/24 16:00 Pulse Ox 99 11/07/24 16:00 O2 Del Method Room Air 11/07/24 16:00 BMI result Body Mass Index 44.4 Const: Other: Awake alert no acute distress Resp: Other: Diminished at bases with scattered expiratory wheezes Cardio: Other: No S4; positive S1-S2; no S3 murmurs rubs or gallops GI: Other: Soft nontender nondistended normoactive bowel sounds Extrem: Other: No edema bilaterally Objective Data Active Medications Acetaminophen (Acetaminophen 325 Mg Tablet) 650 mg PO Q6H PRN PRN Reason: Pain, Mild 1-3,fever,headache Albuterol/Ipratropium (Albuterol/Iprat 2.5/0.5mg 3 Ml Ampul.Neb) 3 ml INHALE Q4H PRN PRN Reason: Shortness of Breath/Wheezing Atorvastatin Calcium (Atorvastatin Calcium 80 Mg Tablet) 80 mg PO DAILY PENDING SALE TO [facility] Last Admin: 11/07/24 08:38 Dose: 80 mg Documented By: KYLRE Calcium Carbonate (Calcium Carbonate 750 Mg Tab.Chew) 750 mg PO Q4H PRN PRN Reason: Heartburn Escitalopram Oxalate (Escitalopram Oxalate 20 Mg Tablet) 20 mg PO DAILY PENDING SALE TO [facility] Last Admin: 11/07/24 08:38 Dose: 20 mg Documented By: KYLER Ferrous Sulfate (Ferrous Sulfate 324 Mg Tablet.Dr) 324 mg PO DAILY PENDING SALE TO [facility] Last Admin: 11/07/24 08:38 Dose: 324 mg Documented By: KYLER Fluticasone/Vilanterol (Fluticasone/Vilanterol 100/25 Blst.W.Dev) 1 puff INHALE RDAILY PENDING SALE TO [facility] Last Admin: 11/07/24 08:24 Dose: 1 puff Documented By: RUSS Lamotrigine (Lamotrigine 25 Mg Tablet) 50 mg PO BID PENDING SALE TO [facility] Last Admin: 11/07/24 08:38 Dose: 50 mg Documented By: KYLER Levothyroxine Sodium (Levothyroxine Sodium 100 Mcg Tablet) 100 mcg PO DAILY@0600 PENDING SALE TO [facility] Last Admin: 11/07/24 06:00 Dose: 100 mcg Documented By: SERENA Lisinopril (Lisinopril 10 Mg Tablet) 10 mg PO DAILY PENDING SALE TO [facility]; Protocol Last Admin: 11/07/24 08:38 Dose: 10 mg Documented By: KYLER Magnesium Hydroxide (Milk Of Magnesia 30 Ml Oral.Susp) 30 ml PO DAILY PRN PRN Reason: Constipation Melatonin (Melatonin 3 Mg Tablet) 6 mg PO BEDTIME PRN PRN Reason: Insomnia Ondansetron HCl (Ondansetron Hcl 4 Mg/2 Ml Vial) 4 mg IVPUSH Q8H PRN PRN Reason: Nausea and Vomiting Polyethylene Glycol (Polyethylene Glycol 3350 17 Gm Powd.Pack) 17 gm PO DAILY PRN PRN Reason: Constipation Senna (Sennosides 8.6 Mg Tablet) 17.2 mg PO BEDTIME PENDING SALE TO [facility] Last Admin: 11/06/24 20:44 Dose: 17.2 mg Documented By: SERENA Sodium Chloride (0.9 % Sodium Chloride Flush 3 Ml Syringe) 3 ml IVFLUSH QSHIFT PENDING SALE TO [facility] Last Admin: 11/07/24 15:08 Dose: Not Given Documented By: KYLER Non-Admin Reason: No Access Warfarin Sodium (Warfarin Sodium 1 Mg Tablet) 1 mg PO MoWeFr@1800 PENDING SALE TO [facility] Warfarin Sodium (Warfarin Sodium 0.5 Mg Halftab) 0.5 mg PO SuTuThSa@1800 PENDING SALE TO [facility] Labs 11/07/24 04:59 11/07/24 04:59 Labs: Laboratory Results - last 24 hr 11/07/24 04:59 MCV 91.4 MCH 29.0 MCHC 31.7 RDW 13.5 Plt Count 219 MPV 9.9 Immature Gran % (Auto) 0.3 Neut % (Auto) 58.4 Lymph % (Auto) 27.5 [place] % (Auto) 9.7 Eos % (Auto) 3.0 Baso % (Auto) 1.1 Lymph # (Auto) 1.7 [place] # (Auto) 0.6 Eos # (Auto) 0.2 Baso # (Auto) 0.1 Abs Immat Gran (auto) 0.02 Absolute Neuts (auto) 3.7 Absolute Nucleated RBC 0.000 Nucleated RBC % (auto) 0.0 PT 23.8 H INR 2.1 H Anion Gap 13 Estim Creat Clear Calc 62.4 Estimated GFR 57 Random Glucose 113 Calcium 9.4 Microbiology Microbiology Results: Microbiology 11/06/24 14:33 Blood Culture - Preliminary Blood - Venous No growth after 24 hours. 11/06/24 12:13 Blood Culture - Preliminary Blood - Venous No growth after 24 hours. Assessment and Plan (1) Hypoxia: Status: Acute (2) DVT (deep venous thrombosis): Status: Acute (3) Hypertension: Status: Acute Plan Patient is a 78 year female with past medical history hypertension, hyperlipidemia, CVA (no obvious deficits), osteoarthritis, hypothyroidism, DVT on Coumadin, B knee replacement, history of falls, morbid obesity (BMI 44), seasonal allergies, asthma (pt denies COPD, active smoking, smoked at age 19 for 2 years), depression/anxiety, iron deficiency anemia was sent to the emergency room by ambulance from her primary care doctor's office for worsening shortness of breath especially with exertion and low POX 66%. Also reported that pt's HR was in the 40's. EMS noted pt's POX was 89% on RA on arrival. Workup in the ED was inconclusive for any specific finding explaining patient's dyspnea. Patient has not been hypoxic since arrival. Patient being admitted for further workup. 1. Hypoxemia questionable asthma exacerbation -DuoNebs q.4 hours while awake -pulmonary consult appreciated -titrate O2 to maintain sats greater than equal to 92% -did not started on steroids on admit; we will re-evaluate in a.m. 2. History of DVT -INR 2.3, coumadin ordered -Daily INR 3. Hypertension -acceptable control on current therapies -adjust as indicated Full code Coumadin Quality Stroke Does the patient have a stroke diagnosis?: No Reason for No Anti-thrombotic by Day Two: N/A - Med Ordered VTE Prior VTE?: Yes VTE Risk Level:: Medical - moderate - high VTE Device Contraindication: N/A - Device Ordered VTE Drug Contraindication: N/A - Med Ordered
--- NOTE | 2024-11-07 18:43 | PC.NURSE ---
Pt coming in from home with concern for hypoxia. per outpatient providers she has had low O2 sats and she needs further workup. she has not had any hypoxia in ED, is on RA with good sats. CTA negative for pathology. labs unremarkable. Pulmonology saw pt in ED and cleared pt from a pulm perspective, suggested echo which is ordered for tomorrow morning. Staff was unable to obtain IV access, multiple sticks plus multiple u/s sticks, inpatient provider aware that she has no access. She is alert, oriented, calm and cooperative with care, meds whole with water, ambulates with her own rollator and standby assist.
[2024-11-08] VITALS: BP 128/59; PULSE 73; RESP 18; TEMP 36.1; O2SAT 98
[2024-11-08 04:00] VITALS: BP 125/74; PULSE 75; RESP 18; TEMP 36.1; O2SAT 96
--- NOTE | 2024-11-08 07:00 | CA_ITS ---
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 The calculated ejection fraction is 62% by biplane method. - There is moderate calcification of the aortic valve. There is mild to moderate aortic valve stenosis. Findings Left Ventricle Normal left ventricular cavity size. The left ventricular systolic function is normal. The calculated ejection fraction is 62% by biplane method. There is no evidence of regional wall motion abnormalities. Diastolic function is normal for age. There is moderate septal asymmetric hypertrophy. Right Ventricle Normal right ventricular cavity size and systolic function. Atria Both atria are normal in size. Aortic Valve There is moderate calcification of the aortic valve. There is mild to moderate aortic valve stenosis. There is no aortic valve regurgitation. Mitral Valve The mitral valve appears normal. There is no mitral valve regurgitation. There is no mitral valve stenosis. Pulmonic Valve The pulmonic valve is likely normal. Tricuspid Valve There is trace tricuspid valve regurgitation. There is no evidence of pulmonary hypertension. Great Vessels The asc aorta and aortic arch are normal in size. Venous The inferior vena cava is normal in size and collapses greater than 50% with inspiration. Pericardium/Pleural There is no evidence of pericardial effusion. Prior Study Comparison No prior study available for comparison. Measurements 2D Linear Measurements IVSd: 1.34 0.6-0.9/0.6-1.0 cm LVIDd: 4.05 3.9-5.3/4.2-5.9 cm LVIDd Index: 1.86 2.4-3.2/2.2-3.1 cm/m2 LVIDs: 2.91 2.0-3.6 cm LVPWd: 0.75 0.7-1.1 cm LA Diam: 3.80 2.7-3.8/3.0-4.0 cm LAIDs Index: 1.74 1.5-2.3 cm/m2 LV Mass: 171.06 67-162/88-224 g LV Mass Index: 78.47 43-95/49-115 g/m2 LVOT Diam: 2.10 3.0+(-)1.3 cm 2D Systolic Function EF 4C: 52.30 >55% EF 2C: 70.80 >55% EF BiP: 62.20 >55% Mitral Valve MV Pk E: 0.60 MV PK A: 0.82 MV Decel Time: 217.00 E/A: 0.70 E'Lateral: 7.07 E'Medial: 4.79 E/E' Med: 12.50 E/E' Lat: 8.50 PHT: 64.00 MVA PHT: 3.44 Decel [place]: 2.76 Aortic Valve AoV Pk Mazin: 3.17 AoV Mn Mazin: 2.15 AoV VTI: 0.72 AoV Pk Grad: 40.00 Aov Mn Grad: 21.00 ALDEN Cont.VTI: 1.42 LVOT LVOT Pk Mazin: 1.19 LVOT Mn Mazin: 0.91 LVOT VTI: 0.30 LVOT Pk Grad: 6.00 LVOT Mn Grad: 4.00 LVOT Diam: 2.10 LVOT Area: 3.46 Diastolic Function MV Pk E: 0.60 MV Pk A: 0.82 E/A: 0.70 E'Medial: 4.79 E/E' Med: 12.50 E' Laterial: 7.07 E/E' Lat: 8.50 Right Ventricle TAPSE (mm): 22.40 TVS' Mazin: 11.10 Tricuspid Valve TR Pk Mazin: 2.52 TR Pk Grad: 25.00 Great Vessels Aorta Sinus of Valsalva: 2.90 2.0-3.5 cm Ao Asc: 3.10 2.1-3.4 cm Ao Arch: 2.60 Pulmonary Veins Pulm Vein S/D 2.00 Pulmonary Valve PV Pk Mazin: 1.19 Peak PV Grad: 6.00 Updated in Other Vendor System with Status of Final Gaurav Wharton MD electronically signed on 11/08/2024 11:46:38 AM with status of Final
[2024-11-08 08:00] VITALS: BP 153/62; PULSE 80; RESP 18; TEMP 36.2; O2SAT 99
[2024-11-08 08:13] VITALS: PULSE 74; RESP 16
[2024-11-08] MEDS: Fluticasone/Vilanterol 100/25 BLST.W.DEV 1 PUFF INHALE (08:13)
[2024-11-08] MEDS: Ferrous Sulfate 324 MG TABLET.DR PO (09:46)
[2024-11-08 10:17] LABS: INTERNATIONAL NORM RATIO 2.3 (0.9-1.1); Prothrombin Time 25.9 SEC (10.9-12.4)
[2024-11-08 12:00] VITALS: BP 136/62; PULSE 74; RESP 18; TEMP 36.2; O2SAT 97
[2024-11-08 12:30] VITALS: PULSE 74; PULSE 96; O2SAT 97; O2SAT 98
--- NOTE | 2024-11-08 13:04 | P.DS_ITS ---
DS: Providers Provider Date of Service: 11/08/24 Date of admission: 11/06/24 18:21 Date of discharge: 11/08/24 Primary care physician: Debbie Diallo MD Consults: 11/06/24 20:03 Consult to Pulmonology Routine Consulting Provider: [facility] [place] Pulmonology Services Reason for consultation: new onset dyspnea with exertion Has provider been notified: No DS: Diagnosis Discharge Diagnosis (1) Hypoxia: Status: Acute (2) DVT (deep venous thrombosis): Status: Acute (3) Hypertension: Status: Acute DS: Summary Hospital Course Hospital Course: 78 year female with past medical history hypertension, hyperlipidemia, CVA (no obvious deficits), osteoarthritis, hypothyroidism, DVT on Coumadin, B k nee replacement, history of falls, morbid obesity (BMI 44), seasonal allergies, depression/anxiety, iron deficiency anemia was sent to the emergency room by ambulance from her primary care doctor's office for worsening shortness of breath especially with exertion and noted POX 66%. Also reported that pt's HR was in the 40's. When EMS arrived, POX 89%. Patient states she has been having increasing shortness of breath over the last week. Patient currently lives alone and ambulates with walker and does not use oxygen home. Patient does have a rescue inhaler but has not been dependent on this medication for breathing issues. Patient denies any wheezing or productive cough. Workup in the emergency department included CT scan of the chest which was negative for any acute findings to include PNA, PLeural effusion or pulmonary edema. Troponin negative and BNP 47. ECG neg for ischemic changes and no evidence of bradycardia in the ED. D-dimer was normal for patient's age. Patient does not have any significant anemia. VBG reassuring 7.39, 49, 40, 30. INR currently 2.3. Subclinical hypothyroidism noted with patient's labs done in the ED. patient normally on 75 mcg of levothyroxine daily and patient does take at least 30 minutes before eating. Pt is morbidly obese and indicates that her weight has been the same for some time. Pt does not particiapte in any senior programs or exercises due to HX of BKR's. Patient currently denies any chest pain, shortness of breath at rest, abdominal pain or nausea and vomiting. Patient denies any problems with productive cough, fever chills or recent exposure to anyone ill. Patient has not had any recent travel especially by plane. Hospital course Patient was admitted to the telemetry unit where monitor failed to demonstrate any acute dysrhythmias. CTA of the chest was unremarkable as well as the echo only with mild aortic stenosis. She was seen by Respiratory in a home O2 evaluation/ambulation failed to demonstrate the need for home O2. At this point in time she is medically acceptable for discharge and can follow up with the PCP Time Attestation Discharge Coordination Time (in mins): 35 Quality: Safe Use of Opioids Does Pt have an Active Cancer Diagnosis on the Problem List?: No Quality: Stroke Does the patient have a stroke diagnosis?: No Physical Exam Vital Signs: Vital Signs: Last Vital Signs Temp 97.1 F 11/08/24 12:00 Pulse 74 11/08/24 12:00 Resp 18 11/08/24 12:00 BP 136/62 11/08/24 12:00 Pulse Ox 97 11/08/24 12:00 O2 Del Method Room Air 11/08/24 12:00 BMI result Body Mass Index 43.9 Const: Other: Awake alert no acute distress Resp: Other: Diminished at bases with scattered expiratory wheezes Cardio: Other: No S4; positive S1-S2; no S3 murmurs rubs or gallops GI: Other: Soft nontender nondistended normoactive bowel sounds Extrem: Other: No edema bilaterally DS: Data Data Completed and Pending Labs on day of discharge: Laboratory Results - last 24 hr 11/08/24 09:57 PT 25.9 H INR 2.3 H Preliminary micro results at discharge 11/06/24 14:33 Blood Culture - Preliminary Blood - Venous No growth after 24 hours. 11/06/24 12:13 Blood Culture - Preliminary Blood - Venous No growth after 24 hours. Discharge Plan Discharge Anticipated Discharge Date/Time: 11/08/24 13:00 Patient Disposition: Home, Self-Care Discharge Diagnosis: Dyspnea on exertion Referrals: Debbie Diallo MD [Primary Care Provider, Primary Care] - 1 Week Discharge Medications: Continued cetirizine 5 mg tablet 10 mg PO DAILY PRN (Reason: allergies) levothyroxine 75 mcg tablet 75 mcg PO DAILY lisinopril 10 mg tablet 10 mg PO DAILY warfarin 1 mg Tablet 1 mg PO MOWEFR@1800 warfarin 1 mg Tablet 0.5 mg PO SUTUTHSA@1800 albuterol sulfate 90 mcg/actuation HFA aerosol inhaler 2 puff inhalation Q6H PRN (Reason: wheezing) escitalopram oxalate 20 mg tablet 20 mg PO DAILY rosuvastatin 20 mg tablet 20 mg PO DAILY budesonide-formoterol 80-4.5 mcg/actuation HFA aerosol inhaler 2 puff INHALATION BID ferrous sulfate 324 mg (65 mg iron) tablet,delayed release (DR/EC) 324 mg PO DAILY lamotrigine 50 mg tablet,disintegrating 50 mg PO BID Discharge Orders: Discharge Order (Routine); Ordered 11/08/24 Ordered By: Errol Pugh Diet: Advance to usual diet Activity on Discharge: As tolerated Stand Alone Forms: Patient Portal Discharge page Print Language: Gambian Care Plan Goals: Resume all your medicines as taken prior to the hospital. Resume your previous Coumadin regimen; nothing has changed Health Concerns: CAT scan of your chest was unremarkable and your echo was essentially normal. Plan of Treatment: Follow up with your PCP next available Assessment: See discharge summary
--- NOTE | 2024-11-08 13:09 | MHC.CM.PN ---
Patient has been medically cleared for dc to home today, self care. IMM was addressed yesterday.
== END 2024-11-08 13:23 | disposition home or self-care (01) | DRG 204 ==
LOC: HO.ED 15:49 → HO.EDOVER 20:04 → HO.IMC 11-07 19:10
PROVIDERS: Nurse Practitioner Family; Admitting Provider Internal Medicine; Emergency Provider Emergency Medicine Emergency Medical Services; PCP Student in an Organized Health Care Education/Training Program; Visit Provider Hospitalist
DX: R06.09 Other forms of dyspnea (principal); Z68.41 Body mass index [BMI] 40.0-44.9, adult; E66.01 Morbid (severe) obesity due to excess calories; Z71.3 Dietary counseling and surveillance; I10 Essential (primary) hypertension; I35.0 Nonrheumatic aortic (valve) stenosis; E03.8 Other specified hypothyroidism; Z20.822 Contact with and (suspected) exposure to COVID-19; Z87.891 Personal history of nicotine dependence; Z86.718 Personal history of other venous thrombosis and embolism; Z79.01 Long term (current) use of anticoagulants; Z79.890 Hormone replacement therapy; Z79.899 Other long term (current) drug therapy
CPT/HCPCS: 36415; 71250; 80048; 80053; 81003; 82803; 83605; 83690; 83735; 83880; 84439; 84443; 84484; 85025; 85379; 85610; 85730; 87040; 87637; 93005; 93306; 99285; Q9957

== ENCOUNTER → 2024-11-06 11:35 | Outpatient (BNV) | payer MEDICARE, SELFPAY | PROVIDERS: Admitting Provider Internal Medicine; Emergency Provider Emergency Medicine Emergency Medical Services; Visit Provider Internal Medicine | DX: I25.2 Old myocardial infarction (principal) | CPT/HCPCS: 93010 ==

== ENCOUNTER → 2024-11-06 15:48 | Outpatient (BNV) | payer MEDICARE, SELFPAY | PROVIDERS: Emergency Provider Emergency Medicine Emergency Medical Services; Visit Provider Radiology Diagnostic Radiology | DX: R09.02 Hypoxemia (principal) | CPT/HCPCS: 71250 ==

== ENCOUNTER 2024-11-06 18:21 | Outpatient (BNV) | payer OTHER, SELFPAY | END 2024-11-08 07:00 | PROVIDERS: Admitting Provider Internal Medicine; Emergency Provider Emergency Medicine Emergency Medical Services; PCP Student in an Organized Health Care Education/Training Program; Visit Provider Internal Medicine | DX: I42.2 Other hypertrophic cardiomyopathy (principal); I35.0 Nonrheumatic aortic (valve) stenosis | CPT/HCPCS: 93306 ==

== ENCOUNTER → 2024-11-06 18:21 | Outpatient (BNV) | payer OTHER, SELFPAY | PROVIDERS: Admitting Provider Internal Medicine; Emergency Provider Emergency Medicine Emergency Medical Services; Visit Provider Internal Medicine Pulmonary Disease | DX: R06.09 Other forms of dyspnea (principal) | CPT/HCPCS: 99223 ==

== ENCOUNTER → 2024-11-06 18:21 | Outpatient (BNV) | payer MEDICARE, SELFPAY | PROVIDERS: Admitting Provider Internal Medicine; Emergency Provider Emergency Medicine Emergency Medical Services; Visit Provider Nurse Practitioner Family | DX: R06.09 Other forms of dyspnea (principal) | CPT/HCPCS: 99223; 99499 ==

== ENCOUNTER 2025-01-11 12:54 | Emergency (ER) | payer OTHER, SELFPAY ==
[2025-01-11] VITALS (8 sets, daily range): BP systolic 124–169; BP diastolic 36–83; PULSE 59–69; RESP 14–16; TEMP 36.8–37; O2SAT 97–100; BMI 43.8
--- NOTE | ~2025-01-11 | CT_ITS ---
EXAMINATION: CT brain and CT cervical spine without contrast. CLINICAL INDICATION: Fall, head strike. COMPARISON: CT brain and CT cervical spine 10/17/2024 TECHNIQUE: 5 mm thin axial and reformatted 2 mm thin sagittal and coronal images of brain were obtained. Subsequently axial 3 mm thin and reformatted 2 mm thin sagittal and coronal images of cervical spine were obtained. DLP 1259 mGy/cm. One or more of the following dose reduction techniques were used: Automated exposure control, adjustment of the mA and/or kV according to patient size, and/or iterative reconstruction. Unless otherwise specified, incidental findings do not require dedicated imaging follow-up. FINDINGS: Head: There is no acute intra-axial, extra-axial bleed, masses or midline shift. There is no acute infarction evolution. The [place] to white matter differentiation is maintained normal. There is moderate prominence of bilateral frontoparietal cortical sulci and subarachnoid space from cerebral volume loss. Dystrophic bibasilar calcifications are seen. No abnormality seen in the posterior fossa. Bone windows reveal no calvarial abnormality. There is no scalp soft tissue abnormality. Paranasal sinuses and mastoid air cells are well-aerated. Cervical spine: On sagittal reconstructed images there is maintained cervical lordosis. The vertebral heights, alignment and disc heights are normal. The craniovertebral junction and C1-C2 alignment is normal. There is mild posterior spondylosis at C6-C7 disc level. Rest of the disc levels are unremarkable. There is no visible acute fracture, dislocation or lytic or sclerotic process seen. The prevertebral and paravertebral soft tissues are normal. The lung apices are clear. CT/CT head/brain wo IV con IMPRESSION: No acute intracranial process seen. No acute fracture, dislocation or subluxation seen in cervical spine. Electronically signed by: Tigre Davis MD 01/11/2025 02:34 PM EDT
--- NOTE | ~2025-01-11 | CT_ITS ---
EXAMINATION: CT brain and CT cervical spine without contrast. CLINICAL INDICATION: Fall, head strike. COMPARISON: CT brain and CT cervical spine 10/17/2024 TECHNIQUE: 5 mm thin axial and reformatted 2 mm thin sagittal and coronal images of brain were obtained. Subsequently axial 3 mm thin and reformatted 2 mm thin sagittal and coronal images of cervical spine were obtained. DLP 1259 mGy/cm. One or more of the following dose reduction techniques were used: Automated exposure control, adjustment of the mA and/or kV according to patient size, and/or iterative reconstruction. Unless otherwise specified, incidental findings do not require dedicated imaging follow-up. FINDINGS: Head: There is no acute intra-axial, extra-axial bleed, masses or midline shift. There is no acute infarction evolution. The [place] to white matter differentiation is maintained normal. There is moderate prominence of bilateral frontoparietal cortical sulci and subarachnoid space from cerebral volume loss. Dystrophic bibasilar calcifications are seen. No abnormality seen in the posterior fossa. Bone windows reveal no calvarial abnormality. There is no scalp soft tissue abnormality. Paranasal sinuses and mastoid air cells are well-aerated. Cervical spine: On sagittal reconstructed images there is maintained cervical lordosis. The vertebral heights, alignment and disc heights are normal. The craniovertebral junction and C1-C2 alignment is normal. There is mild posterior spondylosis at C6-C7 disc level. Rest of the disc levels are unremarkable. There is no visible acute fracture, dislocation or lytic or sclerotic process seen. The prevertebral and paravertebral soft tissues are normal. The lung apices are clear. CT/CT cervical spine wo IV con IMPRESSION: No acute intracranial process seen. No acute fracture, dislocation or subluxation seen in cervical spine. Electronically signed by: Tigre Davis MD 01/11/2025 02:34 PM EDT
--- NOTE | 2025-01-11 13:33 | ECG_ITS ---
Test Reason : fall Blood Pressure : */* mmHG Vent. Rate : 57 BPM Atrial Rate : 57 BPM P-R Int : 194 ms QRS Dur : 92 ms QT Int : 408 ms P-R-T Axes : 17 4 14 degrees QTcB Int : 397 ms Sinus bradycardia Minimal voltage criteria for LVH, may be normal variant ( R in aVL ) Cannot rule out Anterior infarct (cited on or before 13-Jan-2024) Abnormal ECG When compared with ECG of 06-Nov-2024 11:42, No significant change was found Referred By: Cheko Palacios Electronically Signed By: ARTEM MCCURDY MD
--- NOTE | 2025-01-11 14:02 | ED_ITS ---
HPI - General Adult General Chief complaint: Fall Stated complaint: TRIP, +HS, +LAC, +BT Time Seen by Provider: 01/11/25 13:33 Source: patient Mode of arrival: ambulatory Limitations: no limitations History of Present Illness ED Provider: SANG Palacios HPI narrative: This is a 79-year-old female history of morbid obesity, hypothyroidism, hyperlipidemia, hx of DVT on warfarin who presents to the emergency department status post trip and fall. Patient reports she went to get up her legs got caught on her purse, she fell forward hitting the left side of her head on her walker. There was no loss of consciousness she does report that she regularly takes her anticoagulant and has not missed a dose. She reports mild diffuse headache without visual disturbances or associated weakness. She denies any trauma to chest, abdomen or pelvis. She is alert and oriented x4 on arrival with a GCS of 15. Related Data Home Medications ?Medication ?Instructions ?Recorded ?Confirmed albuterol sulfate 90 mcg/actuation 2 puff inhalation Q 6H PRN wheezing 11/06/24 11/06/24 aerosol inhaler budesonide-formoterol HFA 80 2 puff inhalation BID 08/2611/06/24 mcg-4.5 mcg/actuation aerosol inhaler cetirizine 5 mg tablet 10 mg PO DAILY PRN allergies 11/06/24 11/06/24 escitalopram oxalate 20 mg tablet 20 mg PO DAILY 11/0611/06/24 ferrous sulfate 324 mg (65 mg 324 mg PO DAILY 11/06/24 11/06/24 iron) tablet,delayed release lamotrigine 50 mg disintegrating 50 mg PO BID 11/06/24 11/06/24 tablet levothyroxine 75 mcg tablet 75 mcg PO DAILY 11/06/24 0 11/06/24 lisinopril 10 mg tablet 10 mg PO DAILY 11/06/2408/26 rosuvastatin 20 mg tablet 20 mg PO DAILY 11/06/2408/26 warfarin 1 mg tablet 0.5 mg PO SUTUTHSA@1800 08/2611/07/24 warfarin 1 mg tablet 1 mg PO MOWEFR@1800 11/06/24 11/07/24 Allergies Allergy/AdvReac Type Severity Reaction Status Date / Time doxycycline Allergy Unknown Verified 01/11/25 13:12 latex Allergy Unknown Verified 01/11/25 13:12 rosuvastatin Allergy Unknown Verified 01/11/25 13:12 Sulfa (Sulfonamide Allergy Unknown Verified 01/11/25 13:12 Antibiotics) Review of Systems 2 Review of Systems: Yes all other systems are reviewed and are negative [facility] Past Medical History Attestation statement: The following information was validated with the patient. Source: old records reviewed and nursing notes reviewed Medical History MARIE (dyspnea on exertion) DVT (deep venous thrombosis) Morbid obesity Seasonal allergies Fall Osteoarthritis CVA (cerebral vascular accident) Hypothyroidism Hyperlipidemia Hypertension Surgical History H/O abdominal surgery History of left knee replacement Status post right knee replacement Social History Social History Household Members: None Housing: House Do you presently have visiting nurse or other home services: No Alcohol intake: never Patient Tobacco Use Status: Former Tobacco user Tobacco use type: Cigarette Years Smoked: 2 years [age] YOA Advance Directives: Yes Advance Directives on File: Yes Advance Directives Date on File: 11/07/24 service: No Physical Exam ED Exam Exam: Appearance: Alert.? Oriented X3.? No acute distress.? Head: Normocephalic, atraumatic, no step-offs or deformities Eyes: Pupils equal, round and reactive to light.? ENT: Pharynx normal.??External ears normal, TMs normal bilaterally and EAC's normal. No pain with manipulation of external ears bilaterally. No mastoid tenderness. Neck: Normal inspection.? Neck supple.? CVS: Normal heart rate and rhythm.? Pulses normal.? Respiratory: No respiratory distress.? Breath sounds normal.? Abdomen: Soft and nontender.? Skin: Skin warm and dry.? Normal skin color.? Normal skin turgor.?+ small abrasion to left temporal region Extremities: No lower extremity edema.? No calf ttp. 5/5 strength to bilateral upper and lower extremities Back: No midline tenderness, no C-spine tenderness, full range of motion, no CVA tenderness bilaterally Neuro: Oriented X 3.? No motor deficit.? No sensory deficit. CN 2-12 intact Vital Signs: Vital Signs - 24 hr 01/11/25 13:08 01/11/25 16:31 Temperature 98.6 F 98.3 F Pulse Rate 60 60 Respiratory Rate 16 16 Blood Pressure 141/83 H 124/45 L Pulse Oximetry 98 97 Oxygen Delivery Method Room Air Room Air BMI result Body Mass Index 43.8 vss Course Reevaluation(s) Reevaluation #1: CBC with a normocytic anemia appears to be around her baseline. Chemistry with elevated potassium 5.2 will give Lokelma. Also elevation in BUN and creatinine BUN 19 creatinine 1.24 will give her gentle IV hydration. Troponin 7.8 EKG nonischemic. No chest pain or shortness of breath or reported preceding symptoms to fall. Patient's BNP is elevated however no signs of fluid overload on exam. Time: 14:55 Reevaluation #2: CT head with no acute intracranial process seen. No acute fracture, dislocation or subluxation in the cervical spine. Reevaluation #3: Repeat CMP pending. Orthostatic vital still pending. Sign out to Murtaza DOMÍNGUEZ Time: 17:29 Medications Administered Discontinued Medications Generic Name Dose Route Start Last Admin Trade Name Freq PRN Reason Stop Dose Admin Sodium Chloride 500 mls @ 500 mls/hr 01/11/25 15:00 01/11/25 15:43 Ns IV 01/11/25 15:59 500 mls/hr .Q1H PIPER Administration Sodium Zirconium Cyclosilicate 10 gm 01/11/25 14:55 01/11/25 15:43 Sodium Zirconium Cyclosilicate 10 Gm Powd.Pack PO 01/11/25 14:56 10 gm ONCE ONE Administration Medical Decision Making Medical Decision Making [facility] Narrative: 1403 79-year-old female presents status post trip and fall at home with positive head strike, negative LOC positive blood thinners and abrasion to the left side of the face. Happened just prior to arrival. Denies preceding symptoms to fall UTD on tetanus Physical exam small abrasion to left temporal region . Neurological function nonfocal. Cerebellar intact. PERLLA Hx and pe concerning for concussion without loss of consciousness. Low suspicion for intracranial hemorrhage, stroke, posterior stroke. This is likely a mechanical fall. Unlikely ACS, dissection or acute respiratory distress. Will rule out metabolic derangements urinary infection. History and physical exam not consistent with syncope or seizure Plan labs, imaging, urine Differential Diagnosis Differential Diagnoses: The differential diagnosis associated with the presentation includes Admission/Observation Consideration of admission/observation: Escalation of care including admission/observation considered Lab Data MDM Lab Attestation statement: I reviewed the patient's lab results. 01/11/25 14:26 01/11/25 14:26 Labs: Lab Results 01/11/25 01/11/25 Range/Units 14:26 15:03 WBC 6.1 (4.8-10.8) X10*3/uL RBC 3.69 L (4.20-5.50) X10*6/uL Hgb 10.6 L (12.0-16.0) g/dl Hct 34.0 L (37.0-47.0) % MCV 92.1 (80.0-98.0) fL MCH 28.7 (27.0-33.0) pg MCHC 31.2 (31.0-35.0) g/dl RDW 13.6 (11.0-16.0) % Plt Count 194 (160-400) X10*3/uL MPV 9.5 (9.4-12.3) fL Immature Gran % (Auto) 0.3 (0.0-0.4) % Neut % (Auto) 54.0 (45-73) % Lymph % (Auto) 30.1 (20-40) % [place] % (Auto) 11.1 H (2-11) % Eos % (Auto) 3.5 (0-4) % Baso % (Auto) 1.0 (0-2) % Lymph # (Auto) 1.8 (1.2-4.9) X10*3/uL [place] # (Auto) 0.7 (0.1-1.2) X10*3/uL Eos # (Auto) 0.2 (0.0-0.4) X10*3/uL Baso # (Auto) 0.1 (0.0-0.2) X10*3/uL Abs Immat Gran (auto) 0.02 (0.00-0.03) X10*3/uL Absolute Neuts (auto) 3.3 (2.0-8.3) x10*3/uL Absolute Nucleated RBC 0.000 (0.0-0.012) X10*3/uL Nucleated RBC % (auto) 0.0 (0.0-0.2) /100WBC PT 29.7 H (10.9-12.4) SEC INR 2.6 H (0.9-1.1) Sodium 141 (135-145) mmol/L Potassium 5.2 H (3.3-5.1) mmol/L Chloride 108 (96-108) mmol/L Carbon Dioxide 28 (22-29) mmol/L Anion Gap 10 L (12-20) BUN 19 H (9-16) mg/dL Creatinine 1.24 (0.5-1.4) mg/dL Estim Creat Clear Calc 48.4 Estimated GFR 42 Random Glucose 103 (60-115) mg/dL Calcium 8.9 (8.4-10.2) mg/dL Magnesium 2.2 (1.6-2.6) mg/dL Total Bilirubin 0.4 (0.0-1.0) mg/dL AST 19 (5-31) U/L ALT 12 (0-31) U/L Alkaline Phosphatase 76 (39-117) U/L Total Creatine Kinase 88 (26-140) U/L Troponin I High Sens 7.8 (<3.5-17.0) ng/L NT-Pro-B Natriuret Pep 377.1 H (<300) pg/mL Total Protein 6.1 L (6.5-8.0) g/dL Albumin 4.0 (3.5-5.0) g/dL Urine Color Yellow Urine Appearance Clear Urine pH 6.5 (5.0-9.0) Ur Specific [place] 1.010 (1.005-1.025) Urine Protein Negative (Neg-Trace) mg/dL Urine Glucose (UA) Negative (Negative) mg/dL Urine Ketones Negative (Negative) mg/dL Urine Blood Negative (Negative) Urine Nitrite Negative (Negative) Ur Leukocyte Esterase Negative (Negative) Independent Interpretation I performed an independent interpretation of an: EKG (non diagnostic for CC sinus bradycardia ) and CT Scan Interpretation: CT/CT head/brain wo IV con IMPRESSION: No acute intracranial process seen. No acute fracture, dislocation or subluxation seen in cervical spine. CT/CT cervical spine wo IV con IMPRESSION: No acute intracranial process seen. No acute fracture, dislocation or subluxation seen in cervical spine. Radiology Impression Discussion of test interpretation with radiology: I have reviewed the radiologist's reading. Independent Historian Clinical information obtained from an independent historian. History obtained from or confirmed by: EMS External Record Review External record reviewed: Inpatient record, Office record, Outpatient record, Prior outpatient labs, Prior outpatient radiology, Primary care record and Outside ED record Chronic Conditions Patient?s care impacted by: Other (see hpi ) Critical Care Time Critical Care Time Critical Care Time: Yes Total Critical Care Time: 35 Attestation: I attest to this time spent taking care of the patient, obtaining history, physical, reviewing labs, imaging, treatment of patients condition +/- specialist/hospitalist consult +/- procedure Discharge Plan Discharge Clinical Impression: Concussion without loss of consciousness, Acute hyperkalemia, CATRACHITO (acute kidney injury) Patient Disposition: Home, Self-Care Instructions: Concussion (ED), Post Concussion Syndrome (ED), Acute Kidney Injury (DC) Additional Instructions: Take your medications as prescribed. If you were prescribed antibiotics today, it is important that you take your medication to their entirety, do not skip any doses, do not finish them early. Follow-up with your primary care provider this week. Return to the emergency department with new or worsening symptoms. Such as fevers, chills, chest pain, shortness of breath, nausea, vomiting, dizziness, headache, vision changes, lethargy In case of emergency call 911 Prescriptions: No Action cetirizine 5 mg tablet 10 mg PO DAILY PRN (Reason: allergies) levothyroxine 75 mcg tablet 75 mcg PO DAILY lisinopril 10 mg tablet 10 mg PO DAILY warfarin 1 mg Tablet 1 mg PO MOWEFR@1800 warfarin 1 mg Tablet 0.5 mg PO SUTUTHSA@1800 albuterol sulfate 90 mcg/actuation HFA aerosol inhaler 2 puff inhalation Q6H PRN (Reason: wheezing) escitalopram oxalate 20 mg tablet 20 mg PO DAILY rosuvastatin 20 mg tablet 20 mg PO DAILY budesonide-formoterol 80-4.5 mcg/actuation HFA aerosol inhaler 2 puff INHALATION BID ferrous sulfate 324 mg (65 mg iron) tablet,delayed release (DR/EC) 324 mg PO DAILY lamotrigine 50 mg tablet,disintegrating 50 mg PO BID Referrals: Kendal Ni MD [Primary Care Provider, Psychiatry] Print Language: Peruvian
[2025-01-11 14:31] LABS: MANUAL DIFF FLAG NO
[2025-01-11 14:33] LABS: Hematocrit 34.0 % (37.0-47.0); Hemoglobin 10.6 g/dl (12.0-16.0); Imm Gran Abs Auto 0.02 X10*3/uL (0.00-0.03); Imm Gran Pct Auto 0.3 % (0.0-0.4); Lymphocytes Absolute Auto 1.8 X10*3/uL (1.2-4.9); Mean Corpuscular HGB Conc 31.2 g/dl (31.0-35.0); Mean Corpuscular Hemoglobin 28.7 pg (27.0-33.0); Mean Corpuscular Volume 92.1 fL (80.0-98.0); NRBC Abs Auto 0.000 X10*3/uL (0.0-0.012); NRBC Pct Auto 0.0 /100WBC (0.0-0.2); Platelet Count 194 X10*3/uL (160-400); Red Blood Count 3.69 X10*6/uL (4.20-5.50); White Blood Count 6.1 X10*3/uL (4.8-10.8)
[2025-01-11 14:37] LABS: INTERNATIONAL NORM RATIO 2.6 (0.9-1.1); Prothrombin Time 29.7 SEC (10.9-12.4)
[2025-01-11 14:46] LABS: Alanine Aminotransferase 12 U/L (0-31); Albumin Level 4.0 g/dL (3.5-5.0); Alkaline Phosphatase 76 U/L (39-117); Anion Gap 10 (12-20); Aspartate Amino Transferase 19 U/L (5-31); Blood Urea Nitrogen 19 mg/dL (9-16); Calcium 8.9 mg/dL (8.4-10.2); Carbon Dioxide 28 mmol/L (22-29); Chloride 108 mmol/L (96-108); Creatinine Clr Calc Pharmacy 48.4; Estimated Glomerular Filt Rate 42; Magnesium 2.2 mg/dL (1.6-2.6); Potassium 5.2 mmol/L (3.3-5.1); Sodium 141 mmol/L (135-145); Total Protein 6.1 g/dL (6.5-8.0)
[2025-01-11 14:53] LABS: NT Pro B Type Natriuretic Pept 377.1 pg/mL (<300); Troponin-I High Sensitivity 7.8 ng/L (<3.5-17.0)
[2025-01-11 15:16] LABS: Appearance Urine Clear; Glucose Urine UA Negative (Negative); PH 6.5 (5.0-9.0); Specific Gravity - Urine 1.010 (1.005-1.025)
[2025-01-11 18:37] LABS: Alanine Aminotransferase 12 U/L (0-31); Albumin Level 3.9 g/dL (3.5-5.0); Alkaline Phosphatase 73 U/L (39-117); Anion Gap 9 (12-20); Aspartate Amino Transferase 20 U/L (5-31); Blood Urea Nitrogen 17 mg/dL (9-16); Calcium 8.6 mg/dL (8.4-10.2); Carbon Dioxide 28 mmol/L (22-29); Chloride 109 mmol/L (96-108); Creatinine Clr Calc Pharmacy 50.4; Estimated Glomerular Filt Rate 44; Potassium 4.2 mmol/L (3.3-5.1); Sodium 142 mmol/L (135-145); Total Protein 5.9 g/dL (6.5-8.0)
--- NOTE | 2025-01-11 18:54 | PC.NURSE ---
Pt up to date on Tetanus shot
--- NOTE | 2025-01-11 19:12 | PC.NURSE ---
this RN assumed care of this pt @1900, pt A+Ox4, respirations even unlabored, respirations 16/min, pt reporting 7/10 neck pain w/ movement
--- NOTE | 2025-01-11 19:39 | PC.NURSE ---
at this time this RN spoke w/ the pt's daughter Donna, updating her that her mother is D/C
[2025-01-11] MEDS: Lidocaine 4 % Patch ADH..PATCH 1 PATCH TRANSDERMA (19:47)
== END 2025-01-11 20:04 | disposition home or self-care (01) ==
PROVIDERS: Physician Assistant; Emergency Provider Emergency Medicine Emergency Medical Services; PCP Psychiatry & Neurology Psychiatry
DX: S06.0X0A Concussion without loss of consciousness, initial encounter (principal); S00.81XA Abrasion of other part of head, initial encounter; R00.1 Bradycardia, unspecified; R51.9 Headache, unspecified; E87.5 Hyperkalemia; R06.02 Shortness of breath; I10 Essential (primary) hypertension; M54.2 Cervicalgia; R11.0 Nausea; X58.XXXA Exposure to other specified factors, initial encounter; Y93.9 Activity, unspecified; Y92.9 Unspecified place or not applicable; Y99.8 Other external cause status; Z79.01 Long term (current) use of anticoagulants; Z79.899 Other long term (current) drug therapy; Z87.891 Personal history of nicotine dependence
CPT/HCPCS: 36415; 70450; 72125; 80053; 81003; 82550; 83735; 83880; 84484; 85025; 85610; 93005; 96360; 99284; 99285

== ENCOUNTER → 2025-01-11 13:33 | Outpatient (BNV) | payer OTHER, SELFPAY | PROVIDERS: PCP Psychiatry & Neurology Psychiatry; Visit Provider Radiology Diagnostic Radiology | DX: M54.2 Cervicalgia (principal); S06.0X0A Concussion without loss of consciousness, initial encounter; W01.0XXA Fall on same level from slipping, tripping and stumbling without subsequent striking against object, initial encounter | CPT/HCPCS: 70450; 72125 ==

== ENCOUNTER → 2025-01-11 13:33 | Outpatient (BNV) | payer OTHER, SELFPAY | PROVIDERS: Emergency Provider Emergency Medicine Emergency Medical Services; PCP Psychiatry & Neurology Psychiatry; Visit Provider Internal Medicine Cardiovascular Disease | DX: R00.1 Bradycardia, unspecified (principal) | CPT/HCPCS: 93010 ==